=== PATIENT | male | born 1990 | race African-American/Black ===

== ENCOUNTER 2018-02-25 18:44 | Emergency (ER) | payer MEDICAID ==
[2018-02-25] MEDS ORDERED: Albuterol/Ipratropium 3.0-0.5 MG/3 ML Neb Soln NEB ONE (19:20)
--- NOTE | 2018-02-25 19:25 | EDM.PDOC ---
ED HPI GENERAL MEDICAL PROBLEM - General Chief Complaint: Respiratory Problem Stated Complaint: JOHN IS ACTING UP Time Seen by Provider: 02/25/18 19:24 Source of Information: Reports: Patient History Limitations: Reports: No Limitations - History of Present Illness INITIAL COMMENTS - FREE TEXT/NARRATIVE: HISTORY AND PHYSICAL: History of present illness: Patient is a 27-year-old male here with complaint of asthma flare. Patient states that he ran out of his rescue inhaler and nebulizer solution yesterday. He states he usually uses his medications 2-4 times per day. He states he was on a steroid inhaler but has been out of this for the past 6 months. He reports he feels his asthma is starting to flare today since he hasn't had his proair. He denies any cough, fevers, chills. Review of systems: As per history of present illness and below otherwise all systems reviewed and negative. Past medical history: As per history of present illness and as reviewed below otherwise noncontributory. Surgical history: As per history of present illness and as reviewed below otherwise noncontributory. Social history: No reported history of drug or alcohol abuse. Family history: As per history of present illness and as reviewed below otherwise noncontributory. Physical exam: General: patient sitting comfortably in no acute distress HEENT: Atraumatic, normocephalic, pupils reactive, negative for conjunctival pallor or scleral icterus, mucous membranes moist, throat clear, neck supple, nontender, trachea midline. Lungs: Lungs sounds diminished bilaterally, no rhonchi or rales, breath sounds equal bilaterally, chest nontender. Heart: S1S2, regular, negative for clicks, rubs, or JVD. Abdomen: Soft, nondistended, nontender. Negative for masses or hepatosplenomegaly. Negative for costovertebral tenderness. Pelvis: Stable nontender. Genitourinary: Deferred. Rectal: Deferred. Extremities: Atraumatic, negative for cords or calf pain. Neurovascular unremarkable. Neuro: Awake, alert, oriented. Cranial nerves II through XII unremarkable. Cerebellum unremarkable. Motor and sensory unremarkable throughout. Exam nonfocal. Notes: Patient reports improvement in breathing with DuoNeb. Diagnostics: [] Therapeutics: DuoNeb Impression: Asthma exacerbation Plan: 1. Take medrol dosepak and use rescue inhaler as needed as discussed 2. Follow up with primary care provider 3. Return to ED as needed as discussed Definitive disposition and diagnosis as appropriate pending reevaluation and review of above. - Related Data Allergies Allergy/AdvReac Type Severity Reaction Status Date / Time No Known Allergies Allergy Verified 02/11/18 12:29 Home Meds: Home Meds Albuterol [Ventolin HFA] 2 puff INH Q4HR PRN #1 inhaler 02/11/18 [Rx] predniSONE [Prednisone] 20 mg PO DAILY #5 tablet 02/11/18 [Rx] Albuterol Sulfate 2.5 mg IH Q4HR #10 each 02/25/18 [Rx] Albuterol Sulfate [Proair Hfa] 8.5 gm IH Q4HR #2 hfa.aer.ad 02/25/18 [Rx] methylPREDNISolone [Medrol] 4 mg PO ASDIRECTED #1 tab.ds.pk 02/25/18 [Rx] Past Medical History HEENT History: Reports: None Cardiovascular History: Reports: None Respiratory History: Reports: Asthma Gastrointestinal History: Reports: None Genitourinary History: Reports: None Musculoskeletal History: Reports: None Neurological History: Reports: None Endocrine/Metabolic History: Reports: None - Infectious Disease History Infectious Disease History: Reports: None Social & Family History - Family History Family Medical History: Noncontributory - Caffeine Use Caffeine Use: Reports: None ED ROS GENERAL - Review of Systems Review Of Systems: ROS reveals no pertinent complaints other than HPI. ED EXAM, GENERAL - Physical Exam Exam: See Below (see dictation) Course - Orders/Labs/Meds Orders: Active Orders 24 hr Category Date Time Status RT Aerosol Therapy [RC] ASDIRECTED Care 02/25/18 19:21 Ordered Meds: Medications Discontinued Medications Generic Name Dose Route Start Last Admin Trade Name Freq PRN Reason Stop Dose Admin Albuterol/Ipratropium 3 ml 02/25/18 19:20 02/25/18 19:32 Duoneb 3.0-0.5 Mg/3 Ml NEB 02/25/18 19:21 3 ml ONETIME ONE Administration Departure - Departure Time of Disposition: 19:53 Disposition: Home, Self-Care 01 Condition: Good Clinical Impression: Asthma exacerbation - Discharge Information Prescriptions: Albuterol Sulfate 2.5 mg IH Q4HR #10 each Albuterol Sulfate [Proair Hfa] 8.5 gm IH Q4HR #2 hfa.aer.ad methylPREDNISolone [Medrol] 4 mg PO ASDIRECTED #1 tab.ds.pk Referrals: PCP,None [Primary Care Provider] - Forms: ED Department Discharge Additional Instructions: The following information is given to patients seen in the emergency department who are being discharged to home. This information is to outline your options for follow-up care. We provide all patients seen in our emergency department with a follow-up referral. The need for follow-up, as well as the timing and circumstances, are variable depending upon the specifics of your emergency department visit. If you don't have a primary care physician on staff, we will provide you with a referral. We always advise you to contact your personal physician following an emergency department visit to inform them of the circumstance of the visit and for follow-up with them and/or the need for any referrals to a consulting specialist. The emergency department will also refer you to a specialist when appropriate. This referral assures that you have the opportunity for follow-up care with a specialist. All of these measure are taken in an effort to provide you with optimal care, which includes your follow-up. Under all circumstances we always encourage you to contact your private physician who remains a resource for coordinating your care. When calling for follow-up care, please make the office aware that this follow-up is from your recent emergency room visit. If for any reason you are refused follow-up, please contact the [facility] Emergency Department at and asked to speak to the emergency department charge nurse. [facility] Primary Care [address] [place] [id number] [id number] 1. Take medrol dosepak and use rescue inhaler as needed as discussed 2. Follow up with primary care provider 3. Return to ED as needed as discussed - My Orders Last 24 Hours: My Active Orders 02/25/18 19:21 RT Aerosol Therapy [RC] ASDIRECTED - Assessment/Plan Last 24 Hours: My Active Orders 02/25/18 19:21 RT Aerosol Therapy [RC] ASDIRECTED
== END 2018-02-25 20:07 | disposition home or self-care (01) ==
LOC: MW.ED 18:44
DX: J45.901 Unspecified asthma with (acute) exacerbation (principal)
CPT/HCPCS: 94640; 99284-25; J7620-GY

== ENCOUNTER 2018-03-26 16:43 | Emergency (ER) | payer MEDICAID ==
[2018-03-26] MEDS ORDERED: methylPREDNISolone Sodium Succinate 125 MG/2 ML SDV IVPUSH ONE (17:11)
[2018-03-26] MEDS ORDERED: Albuterol/Ipratropium 3.0-0.5 MG/3 ML Neb Soln NEB ONE (17:11)
--- NOTE | 2018-03-26 17:16 | EDM.PDOC ---
<Kelvin Hernandez E - Last Filed: 03/26/18 18:42> ED HPI GENERAL MEDICAL PROBLEM - General Chief Complaint: Respiratory Problem Stated Complaint: HAVE AND ASMIA ATTACK Time Seen by Provider: 03/26/18 16:46 - History of Present Illness INITIAL COMMENTS - FREE TEXT/NARRATIVE: Dr Young is involved in a more critical he shouldn't care at the moment. I did review the patient's chart and the patient himself. Patient states that he feels much improved after his initial breathing treatment. Vital signs are stable. I did offer a second DuoNeb which he declined. He states he would take to be discharged home with his prescriptions. This was reviewed with Dr. Young prior to the patient's discharge. He is agreeable to plan of care. Plan: 1. Please take your medications as directed. 2. Follow-up with your primary caregiver in the next 1-2 days. Return to the ED as needed and as discussed. - Related Data Allergies Allergy/AdvReac Type Severity Reaction Status Date / Time No Known Allergies Allergy Verified 03/26/18 17:26 Home Meds: Home Meds Albuterol Sulfate [Proair Hfa] 8.5 gm IH Q4HR #2 hfa.aer.ad 02/25/18 [Rx] Course - Vital Signs Last Recorded V/S: Last Vital Signs Temp 97.9 F 03/26/18 18:45 Pulse 82 03/26/18 18:45 Resp 20 03/26/18 18:45 BP 142/85 H 03/26/18 18:45 Pulse Ox 97 03/26/18 18:45 - Orders/Labs/Meds Orders: Active Orders 24 hr Category Date Time Status RT Aerosol Therapy [RC] ASDIRECTED Care 03/26/18 17:11 Active Meds: Medications Discontinued Medications Generic Name Dose Route Start Last Admin Trade Name Freq PRN Reason Stop Dose Admin Albuterol/Ipratropium 3 ml 03/26/18 17:11 03/26/18 17:35 Duoneb 3.0-0.5 Mg/3 Ml NEB 03/26/18 17:12 3 ml ONETIME ONE Administration Methylprednisolone Sodium Succinate 125 mg 03/26/18 17:11 03/26/18 18:01 Solu-Medrol IVPUSH 03/26/18 17:12 Not Given ONETIME ONE Methylprednisolone Sodium Succinate 125 mg 03/26/18 18:01 03/26/18 18:01 Solu-Medrol IM 03/26/18 18:02 125 mg ONETIME ONE Administration Departure - Departure Time of Disposition: 18:44 Disposition: Home, Self-Care 01 Clinical Impression: Shortness of breath, Wheezing on expiration Asthma exacerbation Qualifiers: Asthma severity: mild Asthma persistence: intermittent Qualified Code(s): J45.21 - Mild intermittent asthma with (acute) exacerbation - Discharge Information Instructions: Asthma, Adult, [id number] Referrals: PCP,None [Primary Care Provider] - Forms: ED Department Discharge Additional Instructions: The following information is given to patients seen in the emergency department who are being discharged to home. This information is to outline your options for follow-up care. We provide all patients seen in our emergency department with a follow-up referral. The need for follow-up, as well as the timing and circumstances, are variable depending upon the specifics of your emergency department visit. If you don't have a primary care physician on staff, we will provide you with a referral. We always advise you to contact your personal physician following an emergency department visit to inform them of the circumstance of the visit and for follow-up with them and/or the need for any referrals to a consulting specialist. The emergency department will also refer you to a specialist when appropriate. This referral assures that you have the opportunity for follow-up care with a specialist. All of these measure are taken in an effort to provide you with optimal care, which includes your follow-up. Under all circumstances we always encourage you to contact your private physician who remains a resource for coordinating your care. When calling for follow-up care, please make the office aware that this follow-up is from your recent emergency room visit. If for any reason you are refused follow-up, please contact the [facility] Emergency Department at and asked to speak to the emergency department charge nurse. [facility] [address] [place] [id number] [id number] 1. Please take your medications as directed. 2. Follow-up with your primary caregiver in the next 1-2 days. Return to the ED as needed and as discussed. - My Orders Last 24 Hours: My Active Orders 03/26/18 17:11 RT Aerosol Therapy [RC] ASDIRECTED - Assessment/Plan Last 24 Hours: My Active Orders 03/26/18 17:11 RT Aerosol Therapy [RC] ASDIRECTED <Bereket Young - Last Filed: 03/27/18 08:43> ED HPI GENERAL MEDICAL PROBLEM - General Source of Information: Reports: Patient History Limitations: Reports: No Limitations - History of Present Illness INITIAL COMMENTS - FREE TEXT/NARRATIVE: HISTORY AND PHYSICAL: History of present illness: 27-year-old male presenting to emergency department with chief complaint of shortness of breath with past medical history of asthma. Patient states that today he began to feel somewhat short of breath in the morning. This has worsened throughout the day. Secondary to his history of asthma he came to emergency department for further evaluation. States that he is out of his medications at this time. He is originally from [place] and has been in [place] for 1 month. He has not been able to set up a primary care provider. He normally takes Symbicort daily and does have a pro-air inhaler. Also reports that he has had a prednisone prescription in the past to be used as needed for flareups. He denies any associated chest pain, palpitations, syncopal events, or focal neurologic deficits. He has never been intubated secondary to his asthma. Otherwise patient is generally healthy. On exam patient has diffuse generalized wheezing heard throughout all lung parekh. Oxygen saturation is 99% on room air. Patient did have improvement after 1 DuoNeb however there was some still significant decreased air movement so patient was given an additional DuoNeb. Review of systems: As per history of present illness and below otherwise all systems reviewed and negative. Past medical history: As per history of present illness and as reviewed below otherwise noncontributory. Surgical history: As per history of present illness and as reviewed below otherwise noncontributory. Social history: No reported history of drug or alcohol abuse. Family history: As per history of present illness and as reviewed below otherwise noncontributory. Physical exam: HEENT: Atraumatic, normocephalic, pupils reactive, negative for conjunctival pallor or scleral icterus, mucous membranes moist, throat clear, neck supple, nontender, trachea midline. Lungs: Generalized wheezing heard throughout all lung parekh, breath sounds equal bilaterally, chest nontender. Heart: S1S2, regular, negative for clicks, rubs, or JVD. Abdomen: Soft, nondistended, nontender. Negative for masses or hepatosplenomegaly. Negative for costovertebral tenderness. Pelvis: Stable nontender. Genitourinary: Deferred. Rectal: Deferred. Extremities: Atraumatic, negative for cords or calf pain. Neurovascular unremarkable. Neuro: Awake, alert, oriented. Cranial nerves II through XII unremarkable. Cerebellum unremarkable. Motor and sensory unremarkable throughout. Exam nonfocal. Diagnostics: Therapeutics: DuoNeb 1, 125 mg Solu-medrol IM, Albuterol neb prescription, pro-air rescue inhaler prescription, Singulair prescription Impression: Shortness of breath Asthma exacerbation acute Plan: Patient had significant improvement with one duoneb and refused second duoneb. See above and H&P he was disc discharged in good condition with a prescription for albuterol nebs, pro-air rescue inhaler, Singulair, and information to follow -up with a primary care physician as soon as possible. Secondary to his long- standing asthma I emphasized that he establish a primary care physician here as he is originally from [place]. Patient was instructed to return the emergency department if any new or worsening symptoms. Definitive disposition and diagnosis as appropriate pending reevaluation and review of above. chest Pain Score (Numeric/FACES): 2 Past Medical History HEENT History: Reports: None Cardiovascular History: Reports: None Respiratory History: Reports: Asthma Gastrointestinal History: Reports: None Genitourinary History: Reports: None Musculoskeletal History: Reports: None Neurological History: Reports: None Endocrine/Metabolic History: Reports: None - Infectious Disease History Infectious Disease History: Reports: None Social & Family History - Family History Family Medical History: Noncontributory - Caffeine Use Caffeine Use: Reports: None ED ROS GENERAL - Review of Systems Review Of Systems: ROS reveals no pertinent complaints other than HPI. ED EXAM, GENERAL - Physical Exam Exam: See Below Course - Vital Signs Last Recorded V/S: Last Vital Signs Temp 97.9 F 03/26/18 18:45 Pulse 82 03/26/18 18:45 Resp 20 03/26/18 18:45 BP 142/85 H 03/26/18 18:45 Pulse Ox 97 03/26/18 18:45 Departure - Departure Condition: Good
[2018-03-26] MEDS ORDERED: methylPREDNISolone Sodium Succinate 125 MG/2 ML SDV IM ONE (18:01)
== END 2018-03-26 18:45 | disposition home or self-care (01) ==
LOC: MW.ED 16:43
DX: J45.21 Mild intermittent asthma with (acute) exacerbation (principal)
CPT/HCPCS: 94640; 96372; 99284; J2930; J7620-GY

== ENCOUNTER 2019-04-01 16:09 | Emergency (ER) | payer SELFPAY ==
[2019-04-01] MEDS ORDERED: Albuterol/Ipratropium 3.0-0.5 MG/3 ML Neb Soln NEB ONE (16:25)
--- NOTE | 2019-04-01 16:27 | EDM.PDOC ---
ED HPI GENERAL MEDICAL PROBLEM - General Chief Complaint: Respiratory Problem Stated Complaint: ASTHMA Time Seen by Provider: 04/01/19 16:26 Source of Information: Reports: Patient - History of Present Illness INITIAL COMMENTS - FREE TEXT/NARRATIVE: HISTORY AND PHYSICAL: History of present illness: []Patient with history of asthma presents with chest tightness as he has ran out of his hand held inhaler he does use this daily no fever nausea vomiting chills sweats no shortness of breath tripoding pursed lip breathing or accessory muscle usage No fever nausea vomiting chills sweats Review of systems: As per history of present illness and below otherwise all systems reviewed and negative. Past medical history: As per history of present illness and as reviewed below otherwise noncontributory. Surgical history: As per history of present illness and as reviewed below otherwise noncontributory. Social history: No reported history of drug or alcohol abuse. Family history: As per history of present illness and as reviewed below otherwise noncontributory. Physical exam: HEENT: Atraumatic, normocephalic, pupils reactive, negative for conjunctival pallor or scleral icterus, mucous membranes moist, throat clear, neck supple, nontender, trachea midline. Lungs: Clear to auscultation, breath sounds equal bilaterally, chest nontender. Heart: S1S2, regular, negative for clicks, rubs, or JVD. Abdomen: Soft, nondistended, nontender. Negative for masses or hepatosplenomegaly. Negative for costovertebral tenderness. Pelvis: Stable nontender. Genitourinary: Deferred. Rectal: Deferred. Extremities: Atraumatic, negative for cords or calf pain. Neurovascular unremarkable. Neuro: Awake, alert, oriented. Cranial nerves II through XII unremarkable. Cerebellum unremarkable. Motor and sensory unremarkable throughout. Exam nonfocal. Diagnostics: [ chest 1 view ] Therapeutics: [ DuoNeb-improved HFA Prednisone 20 mg #5 no refill ] Impression Asthma exacerbation Medication noncompliance Definitive disposition and diagnosis as appropriate pending reevaluation and review of above. - Related Data Allergies Allergy/AdvReac Type Severity Reaction Status Date / Time No Known Allergies Allergy Verified 04/01/19 16:23 Home Meds: Home Meds Albuterol Sulfate [Albuterol Sulfate Hfa] 2 mg INH ASDIRECTED 04/01/19 [History] Budesonide/Formoterol Fumarate [Symbicort 160-4.5 Mcg Inhaler] 2 mg INH BID [History] Past Medical History - Past Health History Medical/Surgical History: Denies Medical/Surgical History HEENT History: Reports: None Cardiovascular History: Reports: None Respiratory History: Reports: Asthma Gastrointestinal History: Reports: None Genitourinary History: Reports: None Musculoskeletal History: Reports: None Neurological History: Reports: None Endocrine/Metabolic History: Reports: None - Infectious Disease History Infectious Disease History: Reports: None Social & Family History - Family History Family Medical History: Noncontributory - Caffeine Use Caffeine Use: Reports: Energy [employer] ED ROS GENERAL - Review of Systems Review Of Systems: See Below ED EXAM, GENERAL - Physical Exam Exam: See Below Course - Vital Signs Last Recorded V/S: Last Vital Signs Temp 97.3 F 04/01/19 16:20 Pulse 86 04/01/19 16:20 Resp 20 04/01/19 16:20 BP 142/78 H 04/01/19 16:20 Pulse Ox 97 04/01/19 16:20 - Orders/Labs/Meds Orders: Active Orders 24 hr Category Date Time Status RT Aerosol Therapy [RC] ASDIRECTED Care 04/01/19 16:25 Active Chest 1V Frontal [CR] Stat Exams 04/01/19 16:26 Ordered Meds: Medications Discontinued Medications Generic Name Dose Route Start Last Admin Trade Name Freq PRN Reason Stop Dose Admin Albuterol/Ipratropium 3 ml 04/01/19 16:25 04/01/19 16:30 Duoneb 3.0-0.5 Mg/3 Ml NEB 04/01/19 16:26 3 ml ONETIME ONE Administration Departure - Departure Time of Disposition: 16:59 Disposition: Home, Self-Care 01 Condition: Good Clinical Impression: Asthma exacerbation Qualifiers: Asthma severity: mild Asthma persistence: unspecified Qualified Code(s): J45.901 - Unspecified asthma with (acute) exacerbation - Discharge Information Referrals: PCP,None [Primary Care Provider] - Forms: ED Department Discharge Additional Instructions: Medication as prescribed Return if symptoms persist or worsen Follow-up with primary care in 2 weeks [facility] - Primary Care [address] [place] [id number] The following information is given to patients seen in the emergency department who are being discharged to home. This information is to outline your options for follow-up care. We provide all patients seen in our emergency department with a follow-up referral. The need for follow-up, as well as the timing and circumstances, are variable depending upon the specifics of your emergency department visit. If you don't have a primary care physician on staff, we will provide you with a referral. We always advise you to contact your personal physician following an emergency department visit to inform them of the circumstance of the visit and for follow-up with them and/or the need for any referrals to a consulting specialist. The emergency department will also refer you to a specialist when appropriate. This referral assures that you have the opportunity for follow-up care with a specialist. All of these measure are taken in an effort to provide you with optimal care, which includes your follow-up. Under all circumstances we always encourage you to contact your private physician who remains a resource for coordinating your care. When calling for follow-up care, please make the office aware that this follow-up is from your recent emergency room visit. If for any reason you are refused follow-up, please contact the [facility] emergency department at and asked to speak to the emergency department charge nurse. - My Orders Last 24 Hours: My Active Orders 04/01/19 16:25 RT Aerosol Therapy [RC] ASDIRECTED 04/01/19 16:26 Chest 1V Frontal [CR] Stat - Assessment/Plan Last 24 Hours: My Active Orders 04/01/19 16:25 RT Aerosol Therapy [RC] ASDIRECTED 04/01/19 16:26 Chest 1V Frontal [CR] Stat
--- NOTE | 2019-04-01 17:28 | CR ---
INDICATION: Shortness of breath. Asthma. TECHNIQUE: Chest 1 views COMPARISON: 02/25/2019. FINDINGS: Cardiovascular and mediastinum: Heart size and vasculature are normal in caliber and appearance. Lungs and pleural spaces: Lungs are clear. No sign of infiltrate or mass. No sign of pleural effusion. No pneumothorax. Bones and soft tissues: No significant findings. IMPRESSION: No acute findings and no significant changes from the prior exam. Dictated by Nestor Nogueira MD @ Apr 01 2019 5:26PM Signed by Dr. Nestor Nogueira @ Apr 01 2019 5:27PM
== END 2019-04-01 17:17 | disposition home or self-care (01) ==
LOC: MW.ED 16:09
DX: J45.901 Unspecified asthma with (acute) exacerbation (principal); Z79.899 Other long term (current) drug therapy
CPT/HCPCS: 71045; 71045-26; 94640; 99283; 99285-25; J7620-GY

== ENCOUNTER 2019-04-19 15:09 | Emergency (ER) | payer SELFPAY ==
--- NOTE | 2019-04-19 15:53 | EDM.PDOC ---
ED HPI GENERAL MEDICAL PROBLEM - General Chief Complaint: Medication Administration Stated Complaint: ASTHMA ATTACK Time Seen by Provider: 04/19/19 15:41 Source of Information: Reports: Patient History Limitations: Reports: No Limitations - History of Present Illness INITIAL COMMENTS - FREE TEXT/NARRATIVE: Presents reporting that he is out of his inhalers and is afraid might have an asthma attack. He has been asymptomatic except a little chest tightness now and then. Please admits he has been irresponsible and not gotten a primary care appointment like he should be. He is afraid he may have an asthma attack and not have an inhaler available. He usually takes Symbicort 2 puffs twice a day with a rescue inhaler. - Related Data Allergies Allergy/AdvReac Type Severity Reaction Status Date / Time No Known Allergies Allergy Verified 04/01/19 16:23 Home Meds: Home Meds Albuterol Sulfate [Albuterol Sulfate Hfa] 2 mg INH ASDIRECTED 04/01/19 [History] Budesonide/Formoterol Fumarate [Symbicort 160-4.5 Mcg Inhaler] 2 mg INH BID [History] Albuterol Sulfate [Proair Hfa] 2 puff IH Q4HR PRN #1 [email or web address] 04/19/19 [Rx] Budesonide/Formoterol Fumarate [Symbicort 160-4.5 Mcg Inhaler] 2 puff IH BID #1 [email or web address] 04/19/19 [Rx] Past Medical History - Past Health History Medical/Surgical History: Denies Medical/Surgical History HEENT History: Reports: None Cardiovascular History: Reports: None Respiratory History: Reports: Asthma Gastrointestinal History: Reports: None Genitourinary History: Reports: None Musculoskeletal History: Reports: None Neurological History: Reports: None Endocrine/Metabolic History: Reports: None - Infectious Disease History Infectious Disease History: Reports: None Social & Family History - Family History Family Medical History: Noncontributory - Tobacco Use Smoking Status *Q: Never Smoker Second Hand Smoke Exposure: No - Caffeine Use Caffeine Use: Reports: None - Recreational Drug Use Recreational Drug Use: No ED ROS GENERAL - Review of Systems Review Of Systems: ROS reveals no pertinent complaints other than HPI. ED EXAM, GENERAL - Physical Exam Exam: See Below Exam Limited By: No Limitations General Appearance: Alert, No Apparent Distress Ears: Normal External Exam Nose: Normal Inspection Throat/Mouth: Normal Inspection Head: Atraumatic, Normocephalic Neck: Normal Inspection Respiratory/Chest: No Respiratory Distress, Lungs Clear, Normal Breath Sounds Cardiovascular: Normal Peripheral Pulses, Regular Rate, Rhythm, No Murmur GI/Abdominal: Normal Bowel Sounds Extremities: Normal Inspection Neurological: Alert, Oriented Psychiatric: Normal Affect, Normal Mood Skin Exam: Warm, Dry, Intact, Normal Color, No Rash Course - Vital Signs Last Recorded V/S: Last Vital Signs Temp 35.7 C 04/19/19 15:19 Pulse 96 04/19/19 15:19 Resp 20 04/19/19 15:19 BP 146/90 H 04/19/19 15: Pulse Ox 95 04/19/19 15:19 Departure - Departure Time of Disposition: 15:52 Disposition: Home, Self-Care 01 Condition: Good Clinical Impression: Medication refill - Discharge Information Prescriptions: Albuterol Sulfate [Proair Hfa] 2 puff IH Q4HR PRN #1 [email or web address] PRN Reason: Wheezing Budesonide/Formoterol Fumarate [Symbicort 160-4.5 Mcg Inhaler] 2 puff IH BID #1 [email or web address] Referrals: PCP,Unknown [Primary Care Provider] - Additional Instructions: The following information is given to patients seen in the emergency department who are being discharged to home. This information is to outline your options for follow-up care. We provide all patients seen in our emergency department with a follow-up referral. The need for follow-up, as well as the timing and circumstances, are variable depending upon the specifics of your emergency department visit. If you don't have a primary care physician on staff, we will provide you with a referral. We always advise you to contact your personal physician following an emergency department visit to inform them of the circumstance of the visit and for follow-up with them and/or the need for any referrals to a consulting specialist. The emergency department will also refer you to a specialist when appropriate. This referral assures that you have the opportunity for follow-up care with a specialist. All of these measure are taken in an effort to provide you with optimal care, which includes your follow-up. Under all circumstances we always encourage you to contact your private physician who remains a resource for coordinating your care. When calling for follow-up care, please make the office aware that this follow-up is from your recent emergency room visit. If for any reason you are refused follow-up, please contact the [facility] Emergency Department at and asked to speak to the emergency department charge nurse. [facility] - Primary Care [address] [place] [id number] [address] 1. Refill medications 2. Appointment in primary care immediately
== END 2019-04-19 16:02 | disposition home or self-care (01) ==
LOC: MW.ED 15:09
DX: Z76.0 Encounter for issue of repeat prescription (principal); J45.909 Unspecified asthma, uncomplicated; Z79.899 Other long term (current) drug therapy
CPT/HCPCS: 99281; 99283

== ENCOUNTER 2019-05-03 10:46 | Emergency (ER) | payer MEDICAID ==
[2019-05-03] MEDS ORDERED: Albuterol/Ipratropium 3.0-0.5 MG/3 ML Neb Soln NEB ONE (10:56)
[2019-05-03] MEDS ORDERED: methylPREDNISolone Sodium Succinate 125 MG/2 ML SDV IM ONE (10:56)
--- NOTE | 2019-05-03 11:05 | EDM.PDOC ---
ED HPI GENERAL MEDICAL PROBLEM - General Chief Complaint: Respiratory Problem Stated Complaint: ASTHMA Time Seen by Provider: 05/03/19 10:47 Source of Information: Reports: Patient History Limitations: Reports: No Limitations - History of Present Illness INITIAL COMMENTS - FREE TEXT/NARRATIVE: HISTORY AND PHYSICAL: History of present illness: Patient is a 28-year-old male who presents to the emergency room with complaints of dyspnea. Patient has a history of asthma and typically uses an albuterol inhaler when he does feel short of breath. States he does uses routinely. Noticed that his O Peter all inhaler had ran out and was "going to try stick it out" as he has an appointment on Thursday, but felt increase in symptoms and came to the emergency room. Patient denies any fever, chills, headache, change in vision, syncope or near syncope. Denies any chest pain, back pain or cough. Denies any abdominal pain, nausea, vomiting, diarrhea, constipation or dysuria. Has not noted any blood in urine or stool. Patient has been eating and drinking appropriately. Review of systems: As per history of present illness and below otherwise all systems reviewed and negative. Past medical history: As per history of present illness and as reviewed below otherwise noncontributory. Surgical history: As per history of present illness and as reviewed below otherwise noncontributory. Social history: See social history for further information Family history: As per history of present illness and as reviewed below otherwise noncontributory. Physical exam: General: Well-developed and well-nourished 28-year-old male. Alert and oriented. Nontoxic appearing and in no acute distress. HEENT: Atraumatic, normocephalic, pupils equal and reactive bilaterally, negative for conjunctival pallor or scleral icterus, mucous membranes moist, trachea midline. No drooling or trismus noted. No meningeal signs. No hot potato voice noted. Lungs: Diminished to bilateral posterior bases otherwise clear, breath sounds equal bilaterally, chest nontender. Heart: S1S2, regular rate and rhythm without overt murmur Abdomen: Soft, nondistended, obese, nontender. Skin: Intact, warm, dry. No lesions or rashes noted. Extremities: Atraumatic, moves all extremities per self without difficulty or deficits, negative for cords or calf pain. Neurovascular unremarkable. Neuro: Awake, alert, oriented. Cranial nerves II through XII unremarkable. Cerebellum unremarkable. Motor and sensory unremarkable throughout. Exam nonfocal. Notes: Patient reports that he does have an appointment on Thursday to get his medications refilled. I did offer to refill his medication at this time but he states he would not be able to afford it as he does not get paid until next week. We'll dispense 1 albuterol inhaler while here. He does feel improvement after the medicationsSupportive care measures were reviewed and discussed. Voices understanding and is agreeable to plan of care. Denies any further questions or concerns at this time. Diagnostics: None Therapeutics: Duo Neb, Solu-Medrol, Pro-Air Prescription: Declines Impression: Asthma Exacerbation Plan: 1. Please use Tylenol and/or Ibuprofen as needed for pain and fever management. 2. Use Albuterol as needed and as directed. 3. Please follow up with your primary care provider. Return to the ED as needed as discussed. Definitive disposition and diagnosis as appropriate pending reevaluation and review of above. lungs Pain Score (Numeric/FACES): 1 - Related Data Allergies Allergy/AdvReac Type Severity Reaction Status Date / Time No Known Allergies Allergy Verified 05/03/19 10:59 Home Meds: Home Meds Albuterol Sulfate [Albuterol Sulfate Hfa] 2 mg INH ASDIRECTED 04/01/19 [History] Budesonide/Formoterol Fumarate [Symbicort 160-4.5 Mcg Inhaler] 2 mg INH BID [History] Albuterol Sulfate [Proair Hfa] 2 puff IH Q4HR PRN #1 [email or web address] 04/19/19 [Rx] Budesonide/Formoterol Fumarate [Symbicort 160-4.5 Mcg Inhaler] 2 puff IH BID #1 [email or web address] 04/19/19 [Rx] Past Medical History - Past Health History Medical/Surgical History: Denies Medical/Surgical History HEENT History: Reports: None Cardiovascular History: Reports: None Respiratory History: Reports: Asthma Gastrointestinal History: Reports: None Genitourinary History: Reports: None Musculoskeletal History: Reports: None Neurological History: Reports: None Endocrine/Metabolic History: Reports: None - Infectious Disease History Infectious Disease History: Reports: None Social & Family History - Family History Family Medical History: Noncontributory - Caffeine Use Caffeine Use: Reports: None ED ROS GENERAL - Review of Systems Review Of Systems: ROS reveals no pertinent complaints other than HPI. ED EXAM, GENERAL - Physical Exam Exam: See Below (See dictation) Course - Vital Signs Last Recorded V/S: Last Vital Signs Temp 96.0 F 05/03/19 10:54 Pulse 97 05/03/19 10:54 Resp 21 H 05/03/19 10:54 BP 152/99 H 05/03/19 10:54 Pulse Ox 96 05/03/19 10:54 - Orders/Labs/Meds Orders: Active Orders 24 hr Category Date Time Status RT Aerosol Therapy [RC] ASDIRECTED Care 05/03/19 10:57 Ordered RT Post Treatment Assessment [RC] Click to Edit Care 05/03/19 11:11 Ordered RT Pre-Treatment Assessment [RC] Click to Edit Care 05/03/19 11:11 Ordered Meds: Medications Discontinued Medications Generic Name Dose Route Start Last Admin Trade Name Freq PRN Reason Stop Dose Admin Albuterol 1 gm 05/03/19 11:11 Ventolin Hfa INH 05/03/19 11:12 ONETIME ONE Albuterol/Ipratropium 3 ml 05/03/19 10:56 05/03/19 11:01 Duoneb 3.0-0.5 Mg/3 Ml NEB 05/03/19 10:57 3 ml ONETIME ONE Administration Methylprednisolone Sodium Succinate 125 mg 05/03/19 10:56 05/03/19 11:02 Solu-Medrol IM 05/03/19 10:57 125 mg ONETIME ONE Administration Departure - Departure Time of Disposition: 11:14 Disposition: Home, Self-Care 01 Clinical Impression: Asthma exacerbation Qualifiers: Asthma severity: moderate Asthma persistence: persistent Qualified Code(s): J45.41 - Moderate persistent asthma with (acute) exacerbation - Discharge Information Instructions: Asthma, Adult, [id number] Forms: ED Department Discharge Additional Instructions: The following information is given to patients seen in the emergency department who are being discharged to home. This information is to outline your options for follow-up care. We provide all patients seen in our emergency department with a follow-up referral. The need for follow-up, as well as the timing and circumstances, are variable depending upon the specifics of your emergency department visit. If you don't have a primary care physician on staff, we will provide you with a referral. We always advise you to contact your personal physician following an emergency department visit to inform them of the circumstance of the visit and for follow-up with them and/or the need for any referrals to a consulting specialist. The emergency department will also refer you to a specialist when appropriate. This referral assures that you have the opportunity for follow-up care with a specialist. All of these measure are taken in an effort to provide you with optimal care, which includes your follow-up. Under all circumstances we always encourage you to contact your private physician who remains a resource for coordinating your care. When calling for follow-up care, please make the office aware that this follow-up is from your recent emergency room visit. If for any reason you are refused follow-up, please contact the [facility] Emergency Department at and asked to speak to the emergency department charge nurse. [facility] Primary Care [address] [place] [id number] [facility] [address] [place] [id number] 1. Please use Tylenol and/or Ibuprofen as needed for pain and fever management. 2. Use Albuterol as needed and as directed. 3. Please follow up with your primary care provider. Return to the ED as needed as discussed. - My Orders Last 24 Hours: My Active Orders 05/03/19 10:57 RT Aerosol Therapy [RC] ASDIRECTED 05/03/19 11:11 RT Post Treatment Assessment [RC] Click to Edit RT Pre-Treatment Assessment [RC] Click to Edit - Assessment/Plan Last 24 Hours: My Active Orders 05/03/19 10:57 RT Aerosol Therapy [RC] ASDIRECTED 05/03/19 11:11 RT Post Treatment Assessment [RC] Click to Edit RT Pre-Treatment Assessment [RC] Click to Edit
[2019-05-03] MEDS ORDERED: Albuterol 8 GM Inhaler INH ONE (11:11)
== END 2019-05-03 11:26 | disposition home or self-care (01) ==
LOC: MW.ED 10:46
DX: J45.41 Moderate persistent asthma with (acute) exacerbation (principal); Z79.51 Long term (current) use of inhaled steroids
CPT/HCPCS: 96372; 99284; A9270; J2930; 99282; J7620-GY

== ENCOUNTER 2020-02-27 11:11 | Emergency (ER) | payer SELFPAY ==
--- NOTE | 2020-02-27 11:17 | EDM.PDOC ---
ED HPI GENERAL MEDICAL PROBLEM - General Chief Complaint: Respiratory Problem Stated Complaint: ASTHMA Time Seen by Provider: 02/27/20 11:14 Source of Information: Reports: Patient History Limitations: Reports: No Limitations - History of Present Illness INITIAL COMMENTS - FREE TEXT/NARRATIVE: HISTORY AND PHYSICAL: History of present illness: Patient is a 29-year-old male who presents to the ED today with concern of desire for refill of asthma inhalers and medication. Patient states that he is having an issue with money at this time and is having a hard time getting his in halers refilled. Patient states he ran out of his albuterol inhaler yesterday and ran out of his Symbicort inhaler 5 days ago. Patient states he has an appointment with his PCP this next week for refill but worries about not having his inhalers at home. Patient states his chest does randomly feel tight from his asthma which is typical for him but denies any symptoms at this time. Patient denies fever, chills, chest pain, shortness of breath, or cough. Denies headache, neck stiff ness, change in vision, syncope, or near syncope. Denies nausea, vomiting, abdominal pain, diarrhea, constipation, or dysuria. Has not noted any blood in urine or stool. Patient has been eating and drinking appropriately. Review of systems: As per history of present illness and below otherwise all systems reviewed and negative. Past medical history: As per history of present illness and as reviewed below otherwise noncontributory. Surgical history: As per history of present illness and as reviewed below otherwise noncontributory. Social history: See social history for further information Family history: As per history of present illness and as reviewed below otherwise noncontributory. Physical exam: General: Patient is alert, oriented, and in no acute distress. Patient sitting comfortably on exam table. HEENT: Atraumatic, normocephalic, pupils equal and reactive bilaterally, negative for conjunctival pallor or scleral icterus, mucous membranes moist, TMs normal bilaterally, throat clear, neck supple, nontender, trachea midline. No drooling or trismus noted. No meningeal signs. No hot potato voice noted. Lungs: Clear to auscultation, breath sounds equal bilaterally, chest nontender. Heart: S1S2, regular rate and rhythm without overt murmur Abdomen: Soft, nondistended, nontender. Negative for masses or hepatosplenomegaly. Negative for costovertebral tenderness. Pelvis: Stable nontender. Genitourinary: Deferred. Rectal: Deferred. Skin: Intact, warm, dry. No lesions or rashes noted. Extremities: Atraumatic, negative for cords or calf pain. Neurovascular unremarkable. Neuro: Awake, alert, oriented. Cranial nerves II through XII unremarkable. Cerebellum unremarkable. Motor and sensory unremarkable throughout. Exam nonfocal. Notes: Nursing staff did assist patient on applying for [place] Medicaid to help with payments and appointment with PCP was made for close follow up. Discussed importance for follow-up with a primary care provider. Voices understanding and is agreeable to plan of care. Denies any further questions or concerns at this time. Diagnostics: None Therapeutics: Albuterol, Decadron Prescription: Symbicort, Proair Impression: Asthma Plan: 1. Use the inhalers prescribed to you as directed and as discussed. 2. Follow-up with your primary care provider as discussed. Return to the ED as needed and as discussed. Definitive disposition and diagnosis as appropriate pending reevaluation and review of above. chest Pain Score (Numeric/FACES): 4 - Related Data Allergies Allergy/AdvReac Type Severity Reaction Status Date / Time No Known Allergies Allergy Verified 02/27/20 11:17 Home Meds: Home Meds Albuterol Sulfate [Proair Hfa] 2 puff IH Q4HR PRN #1 [email or web address] 04/19/19 [Rx] Albuterol Sulfate [Proair Hfa] 8.5 gm IH Q8HR PRN #1 [email or web address] 02/27/20 [Rx] Budesonide/Formoterol Fumarate [Symbicort 160-4.5 Mcg Inhaler] 2 puff IH Q4HR 02/27/20 [History] Budesonide/Formoterol [Symbicort 160-4.5 MCG] 2 puff INH DAILY #1 inhaler 02/27/20 [Rx] Past Medical History - Past Health History Medical/Surgical History: Denies Medical/Surgical History HEENT History: Reports: None Cardiovascular History: Reports: None Respiratory History: Reports: Asthma Gastrointestinal History: Reports: None Genitourinary History: Reports: None Musculoskeletal History: Reports: None Neurological History: Reports: None Endocrine/Metabolic History: Reports: None - Infectious Disease History Infectious Disease History: Reports: None Social & Family History - Family History Family Medical History: Noncontributory - Caffeine Use Caffeine Use: Reports: None ED ROS GENERAL - Review of Systems Review Of Systems: Comprehensive ROS is negative, except as noted in HPI. ED EXAM, GENERAL - Physical Exam Exam: See Below (see dictation) Course - Vital Signs Last Recorded V/S: Last Vital Signs Temp 98.7 F 02/27/20 11:15 Pulse 84 02/27/20 11:15 Resp 18 02/27/20 11:15 BP 178/97 H 02/27/20 11:15 Pulse Ox 95 02/27/20 11:15 - Orders/Labs/Meds Orders: Active Orders 24 hr Category Date Time Status RT Post Treatment Assessment [RC] Click to Edit Care 02/27/20 11:34 Active RT Pre-Treatment Assessment [RC] Click to Edit Care 02/27/20 11:34 Active Meds: Medications Discontinued Medications Generic Name Dose Route Start Last Admin Trade Name Freq PRN Reason Stop Dose Admin Albuterol 2.5 mg 02/27/20 11:29 02/27/20 11:39 Proventil Neb Soln NEB 02/27/20 11:30 Not Given ONETIME ONE Albuterol 8.5 gm 02/27/20 11:33 02/27/20 11:50 Ventolin Hfa INH 02/27/20 11:34 2 puff ONETIME ONE Administration Dexamethasone 10 mg 02/27/20 11:29 02/27/20 11:49 Dexamethasone PO 02/27/20 11:30 10 mg ONETIME ONE Administration Departure - Departure Time of Disposition: 11:39 Disposition: Home, Self-Care 01 Clinical Impression: Asthma Qualifiers: Asthma severity: unspecified severity Asthma persistence: unspecified Asthma complication type: unspecified Qualified Code(s): J45.909 - Unspecified asthma, uncomplicated - Discharge Information Prescriptions: Albuterol Sulfate [Proair Hfa] 8.5 gm IH Q8HR PRN #1 [email or web address] PRN Reason: Cough Budesonide/Formoterol [Symbicort 160-4.5 MCG] 2 puff INH DAILY #1 inhaler Instructions: Asthma, Adult, [id number] Forms: ED Department Discharge Additional Instructions: The following information is given to patients seen in the emergency department who are being discharged to home. This information is to outline your options for follow-up care. We provide all patients seen in our emergency department with a follow-up referral. The need for follow-up, as well as the timing and circumstances, are variable depending upon the specifics of your emergency department visit. If you don't have a primary care physician on staff, we will provide you with a referral. We always advise you to contact your personal physician following an emergency department visit to inform them of the circumstance of the visit and for follow-up with them and/or the need for any referrals to a consulting specialist. The emergency department will also refer you to a specialist when appropriate. This referral assures that you have the opportunity for follow-up care with a specialist. All of these measure are taken in an effort to provide you with optimal care, which includes your follow-up. Under all circumstances we always encourage you to contact your private physician who remains a resource for coordinating your care. When calling for follow-up care, please make the office aware that this follow-up is from your recent emergency room visit. If for any reason you are refused follow-up, please contact the [facility] Emergency Department at and asked to speak to the emergency department charge nurse. [facility] Primary Care [address] [place] [id number] [id number] 1. Use the inhalers prescribed to you as directed and as discussed. 2. Follow-up with your primary care provider as discussed. Return to the ED as needed and as discussed. Sepsis Event Note (ED) - Evaluation Sepsis Screening Result: No Definite Risk - Focused Exam Vital Signs: Vital Signs Temp Pulse Resp BP Pulse Ox 02/27/20 11:15 98.7 F 84 18 178/97 H 95 - My Orders Last 24 Hours: My Active Orders 02/27/20 11:34 RT Post Treatment Assessment [RC] Click to Edit RT Pre-Treatment Assessment [RC] Click to Edit - Assessment/Plan Last 24 Hours: My Active Orders 02/27/20 11:34 RT Post Treatment Assessment [RC] Click to Edit RT Pre-Treatment Assessment [RC] Click to Edit
[2020-02-27] MEDS ORDERED: Albuterol 0.083% 2.5 MG/3 ML Neb Soln NEB ONE (11:29)
[2020-02-27] MEDS ORDERED: Dexamethasone 10 MG/ML SDV PO ONE (11:29)
[2020-02-27] MEDS ORDERED: Albuterol 8 GM Inhaler INH ONE (11:33)
== END 2020-02-27 12:14 | disposition home or self-care (01) ==
LOC: MW.ED 11:11
DX: J45.909 Unspecified asthma, uncomplicated (principal); Z79.899 Other long term (current) drug therapy
CPT/HCPCS: 99285; A9270; J1100; 99283

== ENCOUNTER 2020-03-19 16:06 | Emergency (ER) | payer SELFPAY ==
[2020-03-19] MEDS ORDERED: Albuterol 8 GM Inhaler INH ONE (16:32)
[2020-03-19] MEDS ORDERED: Dexamethasone 10 MG/ML SDV PO ONE (16:35)
--- NOTE | 2020-03-19 16:39 | EDM.PDOC ---
ED HPI GENERAL MEDICAL PROBLEM - General Chief Complaint: Respiratory Problem Stated Complaint: ASTHMA ATTACK Time Seen by Provider: 03/19/20 16:14 Source of Information: Reports: Patient History Limitations: Reports: No Limitations - History of Present Illness INITIAL COMMENTS - FREE TEXT/NARRATIVE: HISTORY AND PHYSICAL: History of present illness: Patient is a 29-year-old male who presents to the ED today via EMS for concern of inhaler refill. I have seen patient for similar complaint recently on 02/27/2020 and at that time had given patient a refill of albuterol and Symbicort inhalers. I did call the pharmacy at that time who states that patient had multiple refills of his inhaler medication that he has not come to refill. Patient states he presents today for desire to get an albuterol inhaler through the emergency room. Patient states he has been more short of breath recently and has not went to the pharmacy to get his medications refilled. Patient states that last time he was in the ED, he felt better after the therapeutics in the emergency room. Patient states that he is homeless and cannot afford his medications as he does not have insurance and saves up his money for "other things ". Patient states he has not tried to apply for Medicaid. Patient denies fever, chills, chest pain, or cough. Denies headache, neck stiff ness, change in vision, syncope, or near syncope. Denies nausea, vomiting, abdominal pain, diarrhea, constipation, or dysuria. Has not noted any blood in urine or stool. Patient has been eating and drinking appropriately. Review of systems: As per history of present illness and below otherwise all systems reviewed and negative. Past medical history: As per history of present illness and as reviewed below otherwise nonco ntributory. Surgical history: As per history of present illness and as reviewed below otherwise noncontributory. Social history: See social history for further information Family history: As per history of present illness and as reviewed below otherwise noncontributory. Physical exam: General: Patient is alert, oriented, and in no acute distress. Patient sitting comfortably on exam table. HEENT: Atraumatic, normocephalic, pupils equal and reactive bilaterally, negative for conjunctival pallor or scleral icterus, mucous membranes moist, throat clear, neck supple, nontender, trachea midline. No drooling or trismus noted. No meningeal signs. No hot potato voice noted. Lungs: Patient speaking clearly without breathlessness, no wheezing or stridor, no accessory muscle use or respiratory distress. 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 Heart: Auscultation deferred due to current COV-ID 19 outbreak. Abdomen: Soft, nondistended, nontender. Negative for masses or hepat osplenomegaly. Negative for costovertebral tenderness. Pelvis: Stable nontender. Genitourinary: Deferred. Rectal: Deferred. Skin: Intact, warm, dry. No lesions or rashes noted. Extremities: Atraumatic, negative for cords or calf pain. Neurovascular unremarkable. Neuro: Awake, alert, oriented. Cranial nerves II through XII unremarkable. Cerebellum unremarkable. Motor and sensory unremarkable throughout. Exam nonfocal. Notes: I did call patients pharmacy and verify that he does indeed have numerous prescriptions for his inhalers available at the pharmacy for refill Patient states that he does have albuterol as well as his Symbicort prescription available at the pharmacy but is unable to pick this up due to financial reasons. Patient states that he has not "felt like "applying to [place] Medicaid in order to get assistance with his inhalers and does not have health insurance so does not pickling solution maker these inhalers at the pharmacy due to cost. Encouraged patient to apply for [place] Medicaid to receive assistance with his medications. Patient provided with contact information to apply for [place] Medicaid. Discussed with patient the importance for follow-up with her primary care provider. Voices understanding and is agreeable to plan of care. Denies any further questions or concerns at this time. Diagnostics: None Therapeutics: Proair inhaler (patient discharged with inhaler from ED), Decadron Prescription: None (Patient has albuterol and Symbicort RX available for fill at pharmacy) Impression: Asthma exacerbation, mild Medication non compliance Plan: 1. Take inhaler as prescribed given to you today. Follow up with a primary care provider as discussed. Return to the ED as needed and as discussed. 2. Fill your prescriptions for at home inhalers as discussed. 3. You can apply for [place] Medicaid as discussed to assist with medication costs. . Definitive disposition and diagnosis as appropriate pending reevaluation and review of above. chest Pain Score (Numeric/FACES): 1 - Related Data Allergies Allergy/AdvReac Type Severity Reaction Status Date / Time No Known Allergies Allergy Verified 03/19/20 16:11 Home Meds: Home Meds Budesonide/Formoterol Fumarate [Symbicort 160-4.5 Mcg Inhaler] 2 puff IH BID 02/27/20 [History] Albuterol Sulfate [Proair Hfa] 2 puff IN Q4H PRN 03/19/20 [History] Past Medical History - Past Health History Medical/Surgical History: Denies Medical/Surgical History HEENT History: Reports: None Cardiovascular History: Reports: None Respiratory History: Reports: Asthma Gastrointestinal History: Reports: None Genitourinary History: Reports: None Musculoskeletal History: Reports: None Neurological History: Reports: None Psychiatric History: Reports: None Endocrine/Metabolic History: Reports: None Hematologic History: Reports: None Immunologic History: Reports: None Oncologic (Cancer) History: Reports: None Dermatologic History: Reports: None - Infectious Disease History Infectious Disease History: Reports: None - Past Surgical History Head Surgeries/Procedures: Reports: None Oncologic Surgical History: Reports: None Dermatological Surgical History: Reports: None Social & Family History - Family History Family Medical History: Noncontributory - Tobacco Use Smoking Status *Q: Never Smoker - Caffeine Use Caffeine Use: Reports: None - Recreational Drug Use Recreational Drug Use: No ED ROS GENERAL - Review of Systems Review Of Systems: Comprehensive ROS is negative, except as noted in HPI. ED EXAM, GENERAL - Physical Exam Exam: See Below (see dictation) Course - Vital Signs Last Recorded V/S: Last Vital Signs Temp 97.3 F 03/19/20 16:08 Pulse 83 03/19/20 16:08 Resp 20 03/19/20 16:08 BP 138/87 03/19/20 16:08 Pulse Ox 94 L 03/19/20 16:08 - Orders/Labs/Meds Meds: Medications Discontinued Medications Generic Name Dose Route Start Last Admin Trade Name Freq PRN Reason Stop Dose Admin Albuterol 1 gm 03/19/20 17:30 03/19/20 17:29 Ventolin Hfa INH 03/19/20 17:31 1 canister ONETIME ONE Administration Dexamethasone 6 mg 03/19/20 16:35 03/19/20 17:27 Dexamethasone PO 03/19/20 16:36 6 mg ONETIME ONE Administration Departure - Departure Time of Disposition: 16:35 Disposition: Home, Self-Care 01 Clinical Impression: Noncompliance with medication regimen Asthma exacerbation Qualifiers: Asthma severity: mild Asthma persistence: unspecified Qualified Code(s): J45.901 - Unspecified asthma with (acute) exacerbation - Discharge Information Instructions: Asthma, Adult, [id number] Forms: ED Department Discharge Additional Instructions: The following information is given to patients seen in the emergency department who are being discharged to home. This information is to outline your options for follow-up care. We provide all patients seen in our emergency department with a follow-up referral. The need for follow-up, as well as the timing and circumstances, are variable depending upon the specifics of your emergency department visit. If you don't have a primary care physician on staff, we will provide you with a referral. We always advise you to contact your personal physician following an emergency department visit to inform them of the circumstance of the visit and for follow-up with them and/or the need for any referrals to a consulting specialist. The emergency department will also refer you to a specialist when appropriate. This referral assures that you have the opportunity for follow-up care with a specialist. All of these measure are taken in an effort to provide you with optimal care, which includes your follow-up. Under all circumstances we always encourage you to contact your private physician who remains a resource for coordinating your care. When calling for follow-up care, please make the office aware that this follow-up is from your recent emergency room visit. If for any reason you are refused follow-up, please contact the [facility] Emergency Department at and asked to speak to the emergency department charge nurse. [facility] [address] [place] [address] [id number] [address] [address] 1. Take inhaler as prescribed given to you today. Follow up with a primary care provider as discussed. Return to the ED as needed and as discussed. 2. Fill your prescriptions for at home inhalers as discussed. 3. You can apply for [place] Medicaid as discussed to assist with medication costs. [phone]. Sepsis Event Note (ED) - Evaluation Sepsis Screening Result: No Definite Risk - Focused Exam Vital Signs: Vital Signs Temp Pulse Resp BP Pulse Ox 03/19/20 16:08 97.3 F 83 20 138/87 94 L
[2020-03-19] MEDS ORDERED: Albuterol HFA 18 Gm Inhaler INH ONE (17:30)
== END 2020-03-19 17:32 | disposition home or self-care (01) ==
LOC: MW.ED 16:06
DX: J45.901 Unspecified asthma with (acute) exacerbation (principal); Z91.14 Patient's other noncompliance with medication regimen
CPT/HCPCS: 99284; J1100; J3535-GY

== ENCOUNTER 2020-04-11 09:33 | Emergency (ER) | payer SELFPAY ==
[2020-04-11] MEDS ORDERED: Albuterol/Ipratropium 3.0-0.5 MG/3 ML Neb Soln NEB ONE (09:39)
[2020-04-11] MEDS ORDERED: Sodium Chloride 0.9% 10 ML Syringe FLUSH PRN (09:39)
[2020-04-11] MEDS ORDERED: Sodium Chloride 0.9% 2.5 ML Syringe FLUSH PRN (09:39)
[2020-04-11] MEDS ORDERED: Dexamethasone 10 MG/ML SDV IVPUSH ONE (09:39)
--- NOTE | 2020-04-11 09:43 | EDM.PDOC ---
ED HPI GENERAL MEDICAL PROBLEM - General Chief Complaint: Respiratory Problem Stated Complaint: SHORTNESS OF BREATH Time Seen by Provider: 04/11/20 09:39 - History of Present Illness INITIAL COMMENTS - FREE TEXT/NARRATIVE: History of present illness: [] Patient presents with increased shortness of breath from an asthma exacerbation. Patient states he has trouble getting his medicine and had run out of his albuterol and he started to have an asthma flare last night he denies any fever chills or cough he is having chest tightness but he states this is the tightness he gets from his asthma he denies any leg swelling or leg pain no that he is in moderate respiratory distress with some diaphoresis. He usually only takes an albuterol puffer for his asthma he usually cannot afford his Symbicort he has had a nebulizer in the past but is currently broken and he has no medicine for it. Review of systems: As per history of present illness and below otherwise all systems reviewed and negative. Past medical history: As per history of present illness and as reviewed below otherwise noncontributory. Surgical history: As per history of present illness and as reviewed below otherwise noncontributory. Social history: No reported history of drug or alcohol abuse. Family history: As per history of present illness and as reviewed below otherwise noncontributory. Physical exam: HEENT: Atraumatic, normocephalic, pupils reactive, negative for conjunctival pallor or scleral icterus, mucous membranes moist, throat clear, neck supple, nontender, trachea midline. Lungs: Diminished,difuse wheezing, breath sounds equal bilaterally, chest nontender. Heart: S1S2, regular, negative for clicks, rubs, or JVD. Abdomen: Soft, nondistended, nontender. Negative for masses or hepatosplenomegaly. Negative for costovertebral tenderness. Pelvis: Stable nontender. Genitourinary: Deferred. Rectal: Deferred. Extremities: Atraumatic, negative for cords or calf pain. Neurovascular unremarkable. Neuro: Awake, alert, oriented. Cranial nerves II through XII unremarkable. Cerebellum unremarkable. Motor and sensory unremarkable throughout. Exam nonfocal. Skin: Diaphoretic Diagnostics: [] Therapeutics: [] Impression: Asthma exacerbation [] Plan: Patient will have an EKG performed she will have albuterol DuoNeb and dexamethasone and be reassessed. [] Definitive disposition and diagnosis as appropriate pending reevaluation and review of above. chest Pain Score (Numeric/FACES): 3 - Related Data Allergies Allergy/AdvReac Type Severity Reaction Status Date / Time No Known Allergies Allergy Verified 04/11/20 09:39 Home Meds: Home Meds Budesonide/Formoterol Fumarate [Symbicort 160-4.5 Mcg Inhaler] 2 puff IH BID 02/27/20 [History] Albuterol Sulfate [Proair Hfa] 2 puff IN Q4H PRN 03/19/20 [History] Albuterol Sulfate [Albuterol Sulfate Hfa] 8.5 gm IH Q4HR #1 [id number] 04/11/20 [Rx] Albuterol [Proventil] 2.5 mg .XX QID #1 box 04/11/20 [Rx] Past Medical History - Past Health History Medical/Surgical History: Denies Medical/Surgical History HEENT History: Reports: None Cardiovascular History: Reports: None Respiratory History: Reports: Asthma Gastrointestinal History: Reports: None Genitourinary History: Reports: None Musculoskeletal History: Reports: None Neurological History: Reports: None Psychiatric History: Reports: None Endocrine/Metabolic History: Reports: None Hematologic History: Reports: None Immunologic History: Reports: None Oncologic (Cancer) History: Reports: None Dermatologic History: Reports: None - Infectious Disease History Infectious Disease History: Reports: None - Past Surgical History Head Surgeries/Procedures: Reports: None Oncologic Surgical History: Reports: None Dermatological Surgical History: Reports: None Social & Family History - Family History Family Medical History: Noncontributory - Caffeine Use Caffeine Use: Reports: None ED ROS GENERAL - Review of Systems Review Of Systems: See Below ED EXAM, GENERAL - Physical Exam Exam: See Below EKG INTERPRETATION EKG Interpretation Comments: EKG normal sinus rhythm rate of [address]-T changes no fantasma ischemia normal axis normal intervals read and interpreted by me Course - Vital Signs Text/Narrative:: Patient is doing better after his DuoNeb and Decadron. He is no longer in respiratory distress maintaining sats 95% he will be discharged home I will dispense a an albuterol inhaler, write a prescription for an inhaler write a prescription for nebulizer write a prescription for nebulizer albuterol for the patient. He is to follow-up with his primary care doctor. Return to ED if worsening Last Recorded V/S: Last Vital Signs Temp 35.9 C L 04/11/20 09:35 Pulse 96 04/11/20 09:35 Resp 22 H 04/11/20 09:35 BP 152/102 H 04/11/20 09:35 Pulse Ox 94 L 04/11/20 09:35 - Orders/Labs/Meds Orders: Active Orders 24 hr Category Date Time Status EKG Documentation Completion [RC] STAT Care 04/11/20 09:39 Active RT Post Treatment Assessment [RC] Click to Edit Care 04/11/20 10:29 Ordered RT Pre-Treatment Assessment [RC] Click to Edit Care 04/11/20 10:29 Ordered Albuterol [Ventolin HFA] Med 04/11/20 10:29 Once 2 gm INH ONETIME ONE Sodium Chloride 0.9% [Saline Flush] Med 04/11/20 09:39 Active 10 ml FLUSH ASDIRECTED PRN Sodium Chloride 0.9% [Saline Flush] Med 04/11/20 09:39 Active 2.5 ml FLUSH ASDIRECTED PRN Saline Lock Insert [OM.PC] Stat Oth 04/11/20 09:39 Ordered Medication Orders Sodium Chloride (Saline Flush) 10 ml FLUSH ASDIRECTED PRN PRN Reason: Keep Vein Open Last Admin: 04/11/20 09:46 Dose: 10 ml Documented by: SHELBY Sodium Chloride (Saline Flush) 2.5 ml FLUSH ASDIRECTED PRN PRN Reason: Keep Vein Open Last Admin: 04/11/20 09:46 Dose: 2.5 ml Documented by: SHELBY Meds: Medications Generic Name Dose Route Start Last Admin Trade Name Freq PRN Reason Stop Dose Admin Sodium Chloride 10 ml 04/11/20 09:39 04/11/20 09:46 Saline Flush FLUSH 10 ml ASDIRECTED PRN Administration Keep Vein Open Sodium Chloride 2.5 ml 04/11/20 09:39 04/11/20 09:46 Saline Flush FLUSH 2.5 ml ASDIRECTED PRN Administration Keep Vein Open Discontinued Medications Generic Name Dose Route Start Last Admin Trade Name Freq PRN Reason Stop Dose Admin Albuterol/Ipratropium 3 ml 04/11/20 09:39 04/11/20 09:46 Duoneb 3.0-0.5 Mg/3 Ml NEB 04/11/20 09:40 3 ml ONETIME ONE Administration Dexamethasone 10 mg 04/11/20 09:39 04/11/20 09:46 Dexamethasone IVPUSH 04/11/20 09:40 10 mg ONETIME ONE Administration Departure - Departure Time of Disposition: 10:31 Disposition: Home, Self-Care 01 Condition: Good Clinical Impression: Acute asthma Acute asthma exacerbation Qualifiers: Asthma severity: mild Asthma persistence: unspecified Qualified Code(s): J45.901 - Unspecified asthma with (acute) exacerbation - Discharge Information *PRESCRIPTION DRUG MONITORING PROGRAM REVIEWED*: Not Applicable *COPY OF PRESCRIPTION DRUG MONITORING REPORT IN PATIENT ZECHARIAH: Not Applicable Instructions: Asthma, Adult Forms: ED Department Discharge Additional Instructions: The following information is given to patients seen in the emergency department who are being discharged to home. This information is to outline your options for follow-up care. We provide all patients seen in our emergency department with a follow-up referral. The need for follow-up, as well as the timing and circumstances, are variable depending upon the specifics of your emergency department visit. If you don't have a primary care physician on staff, we will provide you with a referral. We always advise you to contact your personal physician following an emergency department visit to inform them of the circumstance of the visit and for follow-up with them and/or the need for any referrals to a consulting specialist. The emergency department will also refer you to a specialist when appropriate. This referral assures that you have the opportunity for follow-up care with a specialist. All of these measure are taken in an effort to provide you with optimal care, which includes your follow-up. Under all circumstances we always encourage you to contact your private physician who remains a resource for coordinating your care. When calling for follow-up care, please make the office aware that this follow-up is from your recent emergency room visit. If for any reason you are refused follow-up, please contact the [facility] Emergency Department at and asked to speak to the emergency department charge nurse. Sepsis Event Note (ED) - Evaluation Sepsis Screening Result: No Definite Risk - Focused Exam Vital Signs: Vital Signs Temp Pulse Resp BP Pulse Ox 04/11/20 09:35 35.9 C L 96 22 H 152/102 H 94 L - My Orders Last 24 Hours: My Active Orders 04/11/20 09:39 EKG Documentation Completion [RC] STAT Sodium Chloride 0.9% [Saline Flush] 10 ml FLUSH ASDIRECTED PRN Sodium Chloride 0.9% [Saline Flush] 2.5 ml FLUSH ASDIRECTED PRN Saline Lock Insert [OM.PC] Stat 04/11/20 10:29 RT Post Treatment Assessment [RC] Click to Edit RT Pre-Treatment Assessment [RC] Click to Edit Albuterol [Ventolin HFA] 2 gm INH ONETIME ONE - Assessment/Plan Last 24 Hours: My Active Orders 04/11/20 09:39 EKG Documentation Completion [RC] STAT Sodium Chloride 0.9% [Saline Flush] 10 ml FLUSH ASDIRECTED PRN Sodium Chloride 0.9% [Saline Flush] 2.5 ml FLUSH ASDIRECTED PRN Saline Lock Insert [OM.PC] Stat 04/11/20 10:29 RT Post Treatment Assessment [RC] Click to Edit RT Pre-Treatment Assessment [RC] Click to Edit Albuterol [Ventolin HFA] 2 gm INH ONETIME ONE
[2020-04-11] MEDS ORDERED: Albuterol 8 GM Inhaler INH ONE (10:29)
[2020-04-11] MEDS ORDERED: Albuterol HFA 18 Gm Inhaler ONE (10:42)
[2020-04-11] MEDS ORDERED: Albuterol 8 GM Inhaler INH SCH (10:45)
[2020-04-11] MEDS ORDERED: Albuterol HFA 18 Gm Inhaler INH PRN (10:46)
[2020-04-11] MEDS ORDERED: Albuterol 8 GM Inhaler INH PRN (10:48)
== END 2020-04-11 11:04 | disposition home or self-care (01) ==
LOC: MW.ED 09:33
DX: J45.901 Unspecified asthma with (acute) exacerbation (principal); Z79.899 Other long term (current) drug therapy
CPT/HCPCS: 93005; 96374; 99284; J1100; 93010; 99283; J3535-GY; J7620-GY

== ENCOUNTER 2020-05-04 22:10 | Emergency (ER) | payer SELFPAY ==
[2020-05-04] MEDS ORDERED: predniSONE 10 MG Tab PO ONE (22:31)
[2020-05-04] MEDS ORDERED: Albuterol HFA 18 Gm Inhaler INH PRN (22:32)
[2020-05-04] MEDS ORDERED: Albuterol HFA 18 Gm Inhaler ONE (22:35)
--- NOTE | 2020-05-04 22:39 | EDM.PDOC ---
ED HPI GENERAL MEDICAL PROBLEM - General Chief Complaint: Respiratory Problem Stated Complaint: ASTHMA ATTACK Time Seen by Provider: 05/04/20 22:25 - History of Present Illness INITIAL COMMENTS - FREE TEXT/NARRATIVE: HISTORY AND PHYSICAL: History of present illness: This a 29-year-old gentleman with a history significant for asthma who presents ER today secondary to shortness of breath and an exacerbation of his asthma. Patient reports that he has a prescription for albuterol as well as Symbicort that he has not filled secondary to financial restraints. Patient denies any recent fevers, shakes, chills, nausea, vomiting, diarrhea, dysuria, frequency, urgency, chest pain, URI symptoms, cough, rhinorrhea, coronavirus concerns, coronavirus exposures. Patient reports that this evening he started getting short of breath and felt like he was wheezing so called EMS. In route by EMS he reports he received 1 nebulized treatment and feels almost completely back to baseline at this time. Patient denies any history of hypertension, diabetes, liver, lung, kidney problems. Patient has any tobacco, alcohol, drug use. Patient reports he occasionally uses marijuana but only uses edibles and does not use any smoking products. Patient has no known drug allergies. Patient reports he has an appointment with a acting teacher in [place] in the next 1 to 2 weeks. Review of systems: MDM: Nurses notes reviewed and agree with ANNITA STEVENS V/S. Any exceptions to agreement documented on physician record. Other than the symptoms associated with the present events, the following is reported with regard to recent health: General: (-) fever. HENT: (-) congestion. Respiratory: (-) cough. Cardiovascular:(-) chest pain. GI: (-) abdominal pain : (-) urinary complaints. Musculoskeletal: (-) other aches or pains. Endocrine: (-) generalized weakness. Neurological: (-) localized weakness. Psychiatric: (-)emotional stress Past medical history: As per history of present illness and as reviewed below otherwise noncontributory. Surgical history: As per history of present illness and as reviewed below otherwise noncontributory. Social history: No reported history of drug or alcohol abuse. Family history: As per history of present illness and as reviewed below otherwise noncontributory. Physical exam: Constitutional: Patient is oriented to person, place, and time. Appears well- developed and well-nourished. No distress. HEENT: Moist mucous membranes Head: Normocephalic and atraumatic Eyes: Right eye exhibits no discharge. Left eye exhibits no discharge. No scleral icterus Neck: Normal range of motion. No tracheal deviation present. Cardiovascular: Normal rate and regular rhythm. Pulmonary: Effort normal, no respiratory distress. Clear without any wheezing rales or rhonchi. Patient is ambulating the ED without any increase shortness of breath or wheezing upon stressing him. Abdominal: No distention Musculoskeletal: Normal range of motion Neurologic: Alert and oriented to person, place and time. Skin: [place], warm and dry. Psychiatric: Normal mood and affect. Behavior is normal. Judgment and thought content normal. Nursing note and vital signs have been reviewed Diagnostics: No x-ray indicated. Therapeutics: Patient given albuterol MDI 2 puffs x 1 in the ED. Assessment and plan: Is a 29-year-old gentleman with history significant for asthma who presents ER today secondary to shortness of breath and wheezing consistent with his typical asthma exacerbation. Patient reports that if he had his albuterol at home he would have likely not needed to call the ambulance. In the ED, the patient reports that he feels completely back to baseline after receiving 1 neb treatment by EMS. In the ED patient will receive 2 puffs of an albuterol MDI to assist him with his asthma. Patient will be given prednisone 40 mg p.o. daily x5. Return precautions have been discussed with the patient. Reassessment at the time of disposition demonstrates that the patient is in no acute distress. The patient has remained stable throughout the entire ED visit and is without objective evidence for acute process requiring urgent intervention or hospitalization. The patient is stable for discharge, counseling is provided as documented above, discussed symptomatic treatment and specific conditions for return. I have spoken with the patient/caregiver and discussed todays findings, in addition to providing specific details for the plan of care. Questions are answered and there is agreement with the plan. Definitive disposition and diagnosis as appropriate pending reevaluation and review of above. Treatments COTTON STOMPER: Reports: Breathing Treatments Other Treatments COTTON STOMPER: duoneb x 1 - Related Data Allergies Allergy/AdvReac Type Severity Reaction Status Date / Time No Known Allergies Allergy Verified 05/04/20 22:17 Home Meds: Home Meds Budesonide/Formoterol Fumarate [Symbicort 160-4.5 Mcg Inhaler] 2 puff IH BID 02/27/20 [History] Albuterol Sulfate [Proair Hfa] 2 puff IN Q4H PRN 03/19/20 [History] Albuterol Sulfate [Albuterol Sulfate Hfa] 8.5 gm IH Q4HR #1 hfa.aer.ad 04/11/20 [Rx] Albuterol [Proventil] 2.5 mg .XX QID #1 box 04/11/20 [Rx] predniSONE [Prednisone] 50 mg PO DAILY #5 tablet 05/04/20 [Rx] Past Medical History - Past Health History Medical/Surgical History: Denies Medical/Surgical History HEENT History: Reports: None Cardiovascular History: Reports: None Respiratory History: Reports: Asthma Gastrointestinal History: Reports: None Genitourinary History: Reports: None Musculoskeletal History: Reports: None Neurological History: Reports: None Psychiatric History: Reports: None Endocrine/Metabolic History: Reports: Obesity/BMI 30+ Hematologic History: Reports: None Immunologic History: Reports: None Oncologic (Cancer) History: Reports: None Dermatologic History: Reports: None - Infectious Disease History Infectious Disease History: Reports: Chicken Pox - Past Surgical History Head Surgeries/Procedures: Reports: None Oncologic Surgical History: Reports: None Dermatological Surgical History: Reports: None Social & Family History - Family History Family Medical History: Noncontributory - Tobacco Use Tobacco Use Status *Q: Never Tobacco User Second Hand Smoke Exposure: No - Caffeine Use Caffeine Use: Reports: None - Recreational Drug Use Recreational Drug Use: No ED ROS GENERAL - Review of Systems Review Of Systems: See Below ED EXAM, GENERAL - Physical Exam Exam: See Below Course - Vital Signs Last Recorded V/S: Last Vital Signs Temp 97.4 F 05/04/20 22:15 Pulse 99 05/04/20 22:15 Resp 18 05/04/20 22:15 BP 138/82 05/04/20 22:15 Pulse Ox 95 05/04/20 22:15 - Orders/Labs/Meds Orders: Active Orders 24 hr Category Date Time Status RT Post Treatment Assessment [RC] Click to Edit Care 05/04/20 22:33 Active RT Pre-Treatment Assessment [RC] Click to Edit Care 05/04/20 22:33 Active Albuterol [Ventolin HFA] Med 05/04/20 22:32 Ordered 1 gm INH Q2H PRN Medication Orders Albuterol (Ventolin Hfa) 1 gm INH Q2H PRN PRN Reason: Shortness of Breath Meds: Medications Generic Name Dose Route Start Last Admin Trade Name Freq PRN Reason Stop Dose Admin Albuterol 1 gm 05/04/20 22:32 Ventolin Hfa INH Q2H PRN Shortness of Breath Discontinued Medications Generic Name Dose Route Start Last Admin Trade Name Freq PRN Reason Stop Dose Admin Prednisone 40 mg 05/04/20 22:31 Prednisone PO 05/04/20 22:32 ONETIME ONE Departure - Departure Time of Disposition: 22:37 Disposition: Home, Self-Care 01 Condition: Good Clinical Impression: Noncompliance with medication regimen, Acute asthma exacerbation - Discharge Information Instructions: Asthma, Adult Additional Instructions: You were seen and treated in the ER today secondary to an asthma exacerbation. You have been given an albuterol MDI to utilize at home until you are able to afford to obtain 1 in the future. Please make sure you talk to your acting teacher that you have an appointment with in [place] regarding different options that might be more cost affordable for you. Please take prednisone 50 mg daily for 5 more days. The following information is given to patients seen in the emergency department who are being discharged to home. This information is to outline your options for follow-up care. We provide all patients seen in our emergency department with a follow-up referral. The need for follow-up, as well as the timing and circumstances, are variable depending upon the specifics of your emergency department visit. If you don't have a primary care physician on staff, we will provide you with a referral. We always advise you to contact your personal physician following an emergency department visit to inform them of the circumstance of the visit and for follow-up with them and/or the need for any referrals to a consulting specialist. The emergency department will also refer you to a specialist when appropriate. This referral assures that you have the opportunity for follow-up care with a specialist. All of these measure are taken in an effort to provide you with optimal care, which includes your follow-up. Under all circumstances we always encourage you to contact your private physician who remains a resource for coordinating your care. When calling for follow-up care, please make the office aware that this follow-up is from your recent emergency room visit. If for any reason you are refused follow-up, please contact the [facility] Emergency Department at and asked to speak to the emergency department charge nurse. Sepsis Event Note (ED) - Evaluation Sepsis Screening Result: No Definite Risk - Focused Exam Vital Signs: Vital Signs Temp Pulse Resp BP Pulse Ox 05/04/20 22:15 97.4 F 99 18 138/82 95 - My Orders Last 24 Hours: My Active Orders 05/04/20 22:32 Albuterol [Ventolin HFA] 1 gm INH Q2H PRN 05/04/20 22:33 RT Post Treatment Assessment [RC] Click to Edit RT Pre-Treatment Assessment [RC] Click to Edit - Assessment/Plan Last 24 Hours: My Active Orders 05/04/20 22:32 Albuterol [Ventolin HFA] 1 gm INH Q2H PRN 05/04/20 22:33 RT Post Treatment Assessment [RC] Click to Edit RT Pre-Treatment Assessment [RC] Click to Edit
== END 2020-05-04 22:47 | disposition home or self-care (01) ==
LOC: MW.ED 22:10
DX: J45.901 Unspecified asthma with (acute) exacerbation (principal); E66.9 Obesity, unspecified; Z91.14 Patient's other noncompliance with medication regimen; Z79.899 Other long term (current) drug therapy
CPT/HCPCS: 99284; A9270; 99283; J3535-GY

== ENCOUNTER 2020-05-23 18:23 | Emergency (ER) | payer SELFPAY ==
[2020-05-23] MEDS ORDERED: predniSONE 20 MG Tab PO ONE (18:29)
--- NOTE | 2020-05-23 18:47 | EDM.PDOC ---
ED HPI GENERAL MEDICAL PROBLEM - General Chief Complaint: Respiratory Problem Stated Complaint: SOB Time Seen by Provider: 05/23/20 18:24 Source of Information: Reports: Patient History Limitations: Reports: No Limitations - History of Present Illness INITIAL COMMENTS - FREE TEXT/NARRATIVE: HISTORY AND PHYSICAL: History of present illness: Patient is a 29-year-old male who presents to the emergency room with complaints of shortness of breath and cough. Patient has a longstanding history of asthma and has not been able to afford his Symbicort. He has not taken this in a few months. He recently ran out of his Pro-Air inhaler 2 days ago and have having increased respiratory symptoms. States EMS gave him an DUO NEB treatment and he feels better. Patient denies any fever, chills, headache, change in vision, syncope or near syncope. Denies any chest pain, back pain, shortness of breath or cough. Denies any abdominal pain, nausea, vomiting, diarrhea, constipation or dysuria. Has not noted any blood in urine or stool. Patient has been eating and drinking appropriately. Review of systems: As per history of present illness and below otherwise all systems reviewed and negative. Past medical history: As per history of present illness and as reviewed below otherwise noncontributory. Surgical history: As per history of present illness and as reviewed below otherwise noncontributory. Social history: See social history for further information Family history: As per history of present illness and as reviewed below otherwise noncontributory. Physical exam: General: Well developed and well nourished 29 year old [place] . Alert and orientated x 3. Nontoxic in appearance and in no acute distress. Vital signs are stable and have been reviewed by me. Nursing notes were reviewed. HEENT: Atraumatic, normocephalic, pupils equal and reactive bilaterally, negative for conjunctival pallor or scleral icterus, mucous membranes moist, neck supple, nontender, trachea midline. No drooling or trismus noted. No meningeal signs. No hot potato voice noted. Lungs: Slightly poor air exchange throughout to auscultation, breath sounds equal bilaterally, chest nontender. Normal work of breathing, no accessory muscles used. Heart: S1S2, regular rate and rhythm without overt murmur Abdomen: Soft, nondistended, nontender. Skin: Intact, warm, dry. No lesions or rashes noted. Hematologic: No petechiae or purpra. Mucosa appropriate color and normal nail bed color and refill. Extremities: Atraumatic, moves all extremities per self without difficulty or deficits, negative for cords or calf pain. Neurovascular unremarkable. Neuro: Awake, alert, oriented. Cranial nerves II through XII unremarkable. Cerebellum unremarkable. Motor and sensory unremarkable throughout. Exam nonfocal. Psychiatric: Mood and affect are appropriate. Normal thought process. Answering questions appropriately. Notes: Using shared decision making the patient does not want any labs or x-rays at this time as he does feel improved after the DuoNeb. His vital signs are stable and his oxygen saturation is appropriate. I will refill his medications. He requests an inhaler be dispensed before discharge. I have talked with the patient about today's findings, in addition to providing specific details for plan of care. Reassessment at the time of disposition demonstrates that the patient is in no acute distress. The patient is stable for discharge, counseling was provided and we discussed in great detail signs and symptoms that would prompt them to return to the Emergency Department. Medication, follow up and supportive care measures were reviewed and discussed. Voices understanding and is agreeable to plan of care. Denies any further questions or concerns at this time. Diagnostics: None/Declines Therapeutics: Prednisone, Albuterol inhaler Prescription: Prednisone, Duo Neb, Pro-Air Impression: Asthma Exacerbation Plan: 1. Today your oxygen saturation improved after the nebulizer treatment. With joint decision making, we decided against doing any labs or x-ray today; but if you feel your symptoms should worsen, new symptoms develop or any of the signs and symptoms we discussed should arise please return to the emergency room or call 911 (if needed). 2. I have given you multiple refills on both the DuoNeb and inhaler. You can pick this up at [facility]. You will need to get a nebulizer machine which is available at [facility] as well, just ask them where they are. You can do the nebulizer every 4 hours as needed. 3. We encourage you to follow up with your primary care provider and/or recommended specialist in the next few days for re-evaluation and further care/management. Definitive disposition and diagnosis as appropriate pending reevaluation and review of above. - Related Data Allergies Allergy/AdvReac Type Severity Reaction Status Date / Time No Known Allergies Allergy Verified 05/23/20 18:28 Home Meds: Home Meds Budesonide/Formoterol Fumarate [Symbicort 160-4.5 Mcg Inhaler] 2 puff IH BID 02/27/20 [History] Albuterol Sulfate [Albuterol Sulfate Hfa] 8.5 gm IH Q4HR #1 hfa.aer.ad 04/11/20 [Rx] Albuterol Sulfate [Proair Hfa] 2 puff IH Q4H PRN #1 hfa.aer.ad 05/23/20 [Rx] Albuterol/Ipratropium [DuoNeb 3.0-0.5 MG/3 ML] 1 ampule INH Q4HR PRN #1 box 05/23/20 [Rx] predniSONE [Prednisone] 40 mg PO DAILY 4 Days #8 tablet 05/23/20 [Rx] Past Medical History - Past Health History Medical/Surgical History: Denies Medical/Surgical History HEENT History: Reports: None Cardiovascular History: Reports: None Respiratory History: Reports: Asthma Gastrointestinal History: Reports: None Genitourinary History: Reports: None Musculoskeletal History: Reports: None Neurological History: Reports: None Psychiatric History: Reports: None Endocrine/Metabolic History: Reports: Obesity/BMI 30+ Hematologic History: Reports: None Immunologic History: Reports: None Oncologic (Cancer) History: Reports: None Dermatologic History: Reports: None - Infectious Disease History Infectious Disease History: Reports: Chicken Pox - Past Surgical History Head Surgeries/Procedures: Reports: None HEENT Surgical History: Reports: None Cardiovascular Surgical History: Reports: None Respiratory Surgical History: Reports: None GI Surgical History: Reports: None Male Surgical History: Reports: None Endocrine Surgical History: Reports: None Neurological Surgical History: Reports: None Musculoskeletal Surgical History: Reports: None Oncologic Surgical History: Reports: None Dermatological Surgical History: Reports: None Social & Family History - Family History Family Medical History: No Pertinent Family History - Tobacco Use Tobacco Use Status *Q: Never Tobacco User - Caffeine Use Caffeine Use: Reports: None - Recreational Drug Use Recreational Drug Use: No ED ROS GENERAL - Review of Systems Review Of Systems: Comprehensive ROS is negative, except as noted in HPI. ED EXAM, GENERAL - Physical Exam Exam: See Below (See dictation) Course - Vital Signs Last Recorded V/S: Last Vital Signs Temp 96.7 F L 05/23/20 18:24 Pulse 83 05/23/20 18:24 Resp 16 05/23/20 18:24 BP 155/92 H 05/23/20 18:24 Pulse Ox 97 05/23/20 18:24 - Orders/Labs/Meds Meds: Medications Discontinued Medications Generic Name Dose Route Start Last Admin Trade Name Freq PRN Reason Stop Dose Admin Albuterol Confirm 05/23/20 19:15 05/23/20 19:21 Ventolin Hfa Administered 05/23/20 19:16 1 inhaler Dose Administration 18 gm .ROUTE .STK-MED ONE Prednisone 40 mg 05/23/20 18:29 05/23/20 18:36 Prednisone PO 05/23/20 18:30 40 mg ONETIME ONE Administration Departure - Departure Time of Disposition: 18:47 Disposition: Home, Self-Care 01 Clinical Impression: Asthma exacerbation Qualifiers: Asthma severity: mild Asthma persistence: unspecified Qualified Code(s): J45.901 - Unspecified asthma with (acute) exacerbation - Discharge Information Prescriptions: Albuterol/Ipratropium [DuoNeb 3.0-0.5 MG/3 ML] 1 ampule INH Q4HR PRN #1 box PRN Reason: Shortness Of Breath predniSONE [Prednisone] 40 mg PO DAILY 4 Days #8 tablet Albuterol Sulfate [Proair Hfa] 2 puff IH Q4H PRN #1 hfa.aer.ad PRN Reason: Dyspnea Instructions: Asthma, Adult, [id number] Forms: ED Department Discharge Additional Instructions: The following information is given to patients seen in the emergency department who are being discharged to home. This information is to outline your options for follow-up care. We provide all patients seen in our emergency department with a follow-up referral. The need for follow-up, as well as the timing and circumstances, are variable depending upon the specifics of your emergency department visit. If you don't have a primary care physician on staff, we will provide you with a referral. We always advise you to contact your personal physician following an emergency department visit to inform them of the circumstance of the visit and for follow-up with them and/or the need for any referrals to a consulting specialist. The emergency department will also refer you to a specialist when appropriate. This referral assures that you have the opportunity for follow-up care with a specialist. All of these measure are taken in an effort to provide you with optimal care, which includes your follow-up. Under all circumstances we always encourage you to contact your private physician who remains a resource for coordinating your care. When calling for follow-up care, please make the office aware that this follow-up is from your recent emergency room visit. If for any reason you are refused follow-up, please contact the [facility] Emergency Department at and asked to speak to the emergency department charge nurse. [facility] [address] [place] [id number] [facility] [address] [place] [phone] Thank you for choosing the [facility] emergency department in [place] for your medical needs today. It was a pleasure caring for you. Today you were seen in the emergency department for asthma exacerbation. 1. Today your oxygen saturation improved after the nebulizer treatment. With joint decision making, we decided against doing any labs or x-ray today; but if you feel your symptoms should worsen, new symptoms develop or any of the signs and symptoms we discussed should arise please return to the emergency room or call 911 (if needed). 2. I have given you multiple refills on both the DuoNeb and inhaler. You can pick this up at [facility]. You will need to get a nebulizer machine which is available at [facility] as well, just ask them where they are. You can do the nebulizer every 4 hours as needed. 3. We encourage you to follow up with your primary care provider and/or recommended specialist in the next few days for re-evaluation and further care/management. Sepsis Event Note (ED) - Evaluation Sepsis Screening Result: No Definite Risk - Focused Exam Vital Signs: Vital Signs Temp Pulse Resp BP Pulse Ox 05/23/20 18:24 96.7 F L 83 16 155/92 H 97
[2020-05-23] MEDS ORDERED: Albuterol HFA 18 Gm Inhaler ONE (19:15)
== END 2020-05-23 19:18 | disposition home or self-care (01) ==
LOC: MW.ED 18:23
DX: J45.901 Unspecified asthma with (acute) exacerbation (principal); E66.9 Obesity, unspecified; Z68.41 Body mass index [BMI] 40.0-44.9, adult
CPT/HCPCS: 99284; A9270; J3535-GY

== ENCOUNTER 2020-06-08 06:35 | Emergency (ER) | payer SELFPAY ==
[2020-06-08] MEDS ORDERED: Albuterol HFA 18 Gm Inhaler INH STA (07:13)
--- NOTE | 2020-06-08 07:18 | EDM.PDOC ---
ED HPI GENERAL MEDICAL PROBLEM - General Chief Complaint: Respiratory Problem Stated Complaint: AMB. Time Seen by Provider: 06/08/20 07:08 Source of Information: Reports: Patient History Limitations: Reports: No Limitations - History of Present Illness INITIAL COMMENTS - FREE TEXT/NARRATIVE: Patient is a 29-year-old male who presents today for shortness of breath. Patient states he has a history of asthma and this morning he woke up with wheezing and chest tightness. Patient states that he slept with the window open last night which she normally does not. Patient denies any coughing fevers chills nausea vomiting. Patient also states due to financial reason he has not had his inhaler and cannot use one at home. - Related Data Allergies Allergy/AdvReac Type Severity Reaction Status Date / Time No Known Allergies Allergy Verified 06/08/20 06:43 Home Meds: Home Meds Budesonide/Formoterol Fumarate [Symbicort 160-4.5 Mcg Inhaler] 2 puff IH BID 02/27/20 [History] Albuterol Sulfate [Proair Hfa] 2 puff IH Q4H PRN #1 [email or web address] 05/23/20 [Rx] Past Medical History - Past Health History Medical/Surgical History: Denies Medical/Surgical History HEENT History: Reports: None Cardiovascular History: Reports: None Respiratory History: Reports: Asthma Gastrointestinal History: Reports: None Genitourinary History: Reports: None Musculoskeletal History: Reports: None Neurological History: Reports: None Psychiatric History: Reports: None Endocrine/Metabolic History: Reports: Obesity/BMI 30+ Insulin Pump Model and Safety Relief Valve Technician: None Hematologic History: Reports: None Immunologic History: Reports: None Oncologic (Cancer) History: Reports: None Dermatologic History: Reports: None - Infectious Disease History Infectious Disease History: Reports: Chicken Pox - Past Surgical History Head Surgeries/Procedures: Reports: None HEENT Surgical History: Reports: None Cardiovascular Surgical History: Reports: None Respiratory Surgical History: Reports: None GI Surgical History: Reports: None Male Surgical History: Reports: None Endocrine Surgical History: Reports: None Neurological Surgical History: Reports: None Musculoskeletal Surgical History: Reports: None Oncologic Surgical History: Reports: None Dermatological Surgical History: Reports: None Social & Family History - Family History Family Medical History: No Pertinent Family History - Tobacco Use Tobacco Use Status *Q: Never Tobacco User - Caffeine Use Caffeine Use: Reports: None - Recreational Drug Use Recreational Drug Use: No ED ROS GENERAL - Review of Systems Review Of Systems: See Below Constitutional: Reports: No Symptoms HEENT: Reports: No Symptoms Respiratory: Reports: Wheezing Cardiovascular: Reports: No Symptoms Endocrine: Reports: No Symptoms GI/Abdominal: Reports: No Symptoms : Reports: No Symptoms Musculoskeletal: Reports: No Symptoms Skin: Reports: No Symptoms Neurological: Reports: No Symptoms Psychiatric: Reports: No Symptoms Hematologic/Lymphatic: Reports: No Symptoms Immunologic: Reports: No Symptoms ED EXAM, GENERAL - Physical Exam Exam: See Below Exam Limited By: No Limitations General Appearance: Alert, No Apparent Distress Head: Atraumatic Respiratory/Chest: No Respiratory Distress, Wheezing Cardiovascular: Normal Peripheral Pulses, Regular Rate, Rhythm Neurological: Alert, Oriented, Normal Cognition, Normal Gait Psychiatric: Normal Affect Course - Vital Signs Last Recorded V/S: Last Vital Signs Temp 97.5 F 06/08/20 06:35 Pulse 86 06/08/20 06:35 Resp 20 06/08/20 06:35 BP 110/89 06/08/20 06:35 Pulse Ox 98 06/08/20 06:35 - Orders/Labs/Meds Orders: Active Orders 24 hr Category Date Time Status RT Post Treatment Assessment [RC] Click to Edit Care 06/08/20 07:14 Active RT Pre-Treatment Assessment [RC] Click to Edit Care 06/08/20 07:14 Active Meds: Medications Discontinued Medications Generic Name Dose Route Start Last Admin Trade Name Luis M PRN Reason Stop Dose Admin Albuterol 2 gm 06/08/20 07:13 06/08/20 07:19 Ventolin Hfa INH 06/08/20 07:14 2 puff NOW STA Administration - Re-Assessments/Exams Free Text/Narrative Re-Assessment/Exam: 06/08/20 07:34 Was given inhaler feels a lot better lungs are clear patient will be discharged home and given inhaler to take home that he was here. Departure - Departure Time of Disposition: 07:34 Disposition: Home, Self-Care 01 Condition: Good Clinical Impression: Asthma Qualifiers: Asthma severity: unspecified severity Asthma persistence: unspecified Asthma complication type: unspecified Qualified Code(s): J45.909 - Unspecified asthma, uncomplicated - Discharge Information *PRESCRIPTION DRUG MONITORING PROGRAM REVIEWED*: Not Applicable *COPY OF PRESCRIPTION DRUG MONITORING REPORT IN PATIENT ZECHARIAH: Not Applicable Instructions: Asthma, Adult Referrals: PCP,None [Primary Care Provider] - Forms: ED Department Discharge Additional Instructions: The following information is given to patients seen in the emergency department who are being discharged to home. This information is to outline your options for follow-up care. We provide all patients seen in our emergency department with a follow-up referral. The need for follow-up, as well as the timing and circumstances, are variable depending upon the specifics of your emergency department visit. If you don't have a primary care physician on staff, we will provide you with a referral. We always advise you to contact your personal physician following an emergency department visit to inform them of the circumstance of the visit and for follow-up with them and/or the need for any referrals to a consulting specialist. The emergency department will also refer you to a specialist when appropriate. This referral assures that you have the opportunity for follow-up care with a specialist. All of these measure are taken in an effort to provide you with optimal care, which includes your follow-up. Under all circumstances we always encourage you to contact your private physician who remains a resource for coordinating your care. When calling for follow-up care, please make the office aware that this follow-up is from your recent emergency room visit. If for any reason you are refused follow-up, please contact the [facility] Emergency Department at and asked to speak to the emergency department charge nurse. Please follow up with your primary care physician. If you do not have a primary care physician, see below: [facility] [address] [place] [id number] [facility] [address] [place] [id number] Please attempt to follow-up with your primary care physician. If you have any increased shortness of breath please return to the ED. Sepsis Event Note (ED) - Evaluation Sepsis Screening Result: No Definite Risk - Focused Exam Vital Signs: Vital Signs Temp Pulse Resp BP Pulse Ox 06/08/20 06:35 97.5 F 86 20 110/89 98 - My Orders Last 24 Hours: My Active Orders 06/08/20 07:14 RT Post Treatment Assessment [RC] Click to Edit RT Pre-Treatment Assessment [RC] Click to Edit - Assessment/Plan Last 24 Hours: My Active Orders 06/08/20 07:14 RT Post Treatment Assessment [RC] Click to Edit RT Pre-Treatment Assessment [RC] Click to Edit Plan: Patient is a 29-year-old male who presents today for wheezing. Patient has some slight wheeze on the left. Patient ox level is 98% 200% on room air. Will give an albuterol treatment and reassess.
== END 2020-06-08 07:43 | disposition home or self-care (01) ==
LOC: MW.ED 06:35
DX: J45.909 Unspecified asthma, uncomplicated (principal); E66.9 Obesity, unspecified; Z68.39 Body mass index [BMI] 39.0-39.9, adult; Z79.899 Other long term (current) drug therapy
CPT/HCPCS: 99283; 99285-25; J3535-GY

== ENCOUNTER 2020-07-26 08:22 | Emergency (ER) | payer SELFPAY ==
[2020-07-26] MEDS ORDERED: Albuterol HFA 18 Gm Inhaler INH PRN (08:49)
[2020-07-26] MEDS ORDERED: predniSONE 10 MG Tab PO ONE (08:50)
[2020-07-26] MEDS ORDERED: Albuterol 8 GM Inhaler INH ONE (09:02)
[2020-07-26] MEDS ORDERED: Dexamethasone 4 MG Tab PO ONE (09:17)
--- NOTE | 2020-07-26 09:22 | EDM.PDOC ---
ED HPI GENERAL MEDICAL PROBLEM - General Chief Complaint: Asthma Stated Complaint: ASTHMA Time Seen by Provider: 07/26/20 08:48 - History of Present Illness INITIAL COMMENTS - FREE TEXT/NARRATIVE: CHIEF COMPLAINT(S): Asthma HISTORY OF PRESENT ILLNESS: This is a 30-year-old man and with a past medical history of asthma who comes to the emergency department with a chief complaint of asthma. The patient states that since this morning he started experiencing some mild shortness of breath. He states that he is out of his inhaler. He states that he does not have any insurance and is not able to afford his inhalers. He states that he was on Symbicort which was controlling his asthma however given that he cannot afford it he is no longer using it. He states that he has been using albuterol approximately every 4 hours. He denies any cough, fever, chills. He denies any Covid exposures. He denies any other symptoms. REVIEW OF SYSTEMS: Constitutional: Denies fever, chills. Eyes: Denies eye pain Ears, Nose, Mouth, & Throat: Denies earache Cardiovascular: Denies chest pain Respiratory: Positive for shortness of breath and wheezing Gastrointestinal: Denies Nausea, vomiting, diarrhea, hematochezia. Genitourinary: Denies hematuria Skin:Denies a rash Neurological: Denies blurred vision Psychiatric: Denies depression PAST MEDICAL HISTORY: As per history of present illness and as reviewed below otherwise noncontributory. SURGICAL HISTORY: As per history of present illness and as reviewed below otherwise noncontributory. SOCIAL HISTORY: As per history of present illness and as reviewed below otherwise noncontributory. FAMILY HISTORY: As per history of present illness and as reviewed below otherwise noncontributory. EXAMINATION OF ORGAN SYSTEMS/BODY AREAS: Constitutional: Blood pressure was 154/86, heart rate 96, respiratory rate 18 with an oxygen saturation 97% on room air. Temperature 36.1 General: Obese gentleman who does not appear to be in acute distress Psychiatric: Appropriate mood and affect. Eyes: No scleral icterus or conjunctival erythema ENMT: Moist mucous membranes. No pharyngeal erythema Cardiovascular: Regular, rate, and rhythm. No gallops, murmurs, or rubs. Bilateral upper extremity pulses symmetric and intact. No peripheral edema. No JVD. Respiratory: Patient is speaking in full sentences. No increased work of breathing. There is mild bilateral expiratory wheezing. The wheezing is symmetric. I do not hear any crackles. Gastrointestinal: Soft, non-tender, non-distended. Normoactive bowel sounds Genitourinary: No suprapubic tenderness Musculoskeletal: Normal range of motion. Skin: No lesions or abrasions. Neurological: Alert, GCS 15 MEDICAL DECISION MAKING AND COURSE IN THE ED WITH INTERPRETATION/REVIEW OF DIAGNOSTIC STUDIES: This is a 30-year-old man with a past medical history of asthma who comes to the emergency department with mild acute asthma exacerbation likely secondary to inability to fill his medications. At this time we will provide the patient with albuterol via MDI and prednisone by mouth. I do not believe the patient requires any further imaging or work-up. We will reevaluate the patient after albuterol administration. After albuterol administration the patient no longer had any wheezing and had clear breath sounds bilaterally and still speaking in full sentences. The patient was saturating well on room air. I did discuss the importance of following with primary care physician for which he does not have been we will provide. I also discussed with him that we would be providing him with resources in order to obtain medical insurance so that he could obtain his asthma medications. He did express understanding was amenable to discharge at this time and had no further questions. DISPOSITION: The patient was discharged home in stable condition. The patient will follow up with primary care clinic within 1 CONDITION: Fair PROCEDURES: None FINAL IMPRESSION(S)/DIAGNOSES: 1. Acute asthma exacerbation Ja Olivo M.D. Chest Pain Score (Numeric/FACES): 2 - Related Data Allergies Allergy/AdvReac Type Severity Reaction Status Date / Time No Known Allergies Allergy Verified 07/26/20 08:34 Home Meds: Home Meds Albuterol Sulfate [Albuterol Sulfate Hfa] 2 puff INH ASDIRECTED 07/31/19 [His tory] Past Medical History - Past Health History Medical/Surgical History: Denies Medical/Surgical History HEENT History: Reports: None Cardiovascular History: Reports: None Respiratory History: Reports: Asthma Gastrointestinal History: Reports: None Genitourinary History: Reports: None Musculoskeletal History: Reports: None Neurological History: Reports: None Psychiatric History: Reports: None Endocrine/Metabolic History: Reports: Obesity/BMI 30+ Insulin Pump Model and Applications Project Manager: None Hematologic History: Reports: None Immunologic History: Reports: None Oncologic (Cancer) History: Reports: None Dermatologic History: Reports: None - Infectious Disease History Infectious Disease History: Reports: Chicken Pox - Past Surgical History Head Surgeries/Procedures: Reports: None HEENT Surgical History: Reports: None Cardiovascular Surgical History: Reports: None Respiratory Surgical History: Reports: None GI Surgical History: Reports: None Male Surgical History: Reports: None Endocrine Surgical History: Reports: None Neurological Surgical History: Reports: None Musculoskeletal Surgical History: Reports: None Oncologic Surgical History: Reports: None Dermatological Surgical History: Reports: None Social & Family History - Family History Family Medical History: No Pertinent Family History - Tobacco Use Tobacco Use Status *Q: Never Tobacco User - Caffeine Use Caffeine Use: Reports: Energy Drinks, None - Recreational Drug Use Recreational Drug Use: No ED ROS GENERAL - Review of Systems Review Of Systems: See Below ED EXAM, GENERAL - Physical Exam Exam: See Below Course - Vital Signs Last Recorded V/S: Last Vital Signs Temp 36.1 C 07/26/20 08:38 Pulse 87 07/26/20 09:34 Resp 18 07/26/20 08:38 BP 145/70 H 07/26/20 09:34 Pulse Ox 98 07/26/20 09:34 - Orders/Labs/Meds Meds: Medications Discontinued Medications Generic Name Dose Route Start Last Admin Trade Name Freq PRN Reason Stop Dose Admin Albuterol 8 gm 07/26/20 08:49 Ventolin Hfa INH Q2H PRN Shortness of Breath Albuterol Confirm 07/26/20 09:02 07/26/20 09:10 Ventolin Hfa Administered 07/26/20 09:03 1 dose Dose Administration 8 gm INH .STK-MED ONE Dexamethasone 10 mg 07/26/20 09:17 07/26/20 09:33 Dexamethasone PO 07/26/20 09:18 10 mg ONETIME ONE Administration Prednisone 50 mg 07/26/20 08:50 07/26/20 09:10 Prednisone PO 07/26/20 08:51 50 mg ONETIME ONE Administration Departure - Departure Time of Disposition: 09:19 Disposition: Home, Self-Care 01 Condition: Fair Clinical Impression: Acute asthma exacerbation Qualifiers: Asthma severity: moderate Asthma persistence: persistent Qualified Code(s): J45.41 - Moderate persistent asthma with (acute) exacerbation - Discharge Information *PRESCRIPTION DRUG MONITORING PROGRAM REVIEWED*: No *COPY OF PRESCRIPTION DRUG MONITORING REPORT IN PATIENT ZECHARIAH: No Instructions: Asthma, Adult, [id number] Referrals: PCP,None [Primary Care Provider] - Forms: ED Department Discharge Additional Instructions: Your evaluated today on an emergent basis. At this time I do believe you have moderate persistent asthma and your exacerbation today was likely due to running out of your medication. I recommend continued use of albuterol every 4-6 hours as needed for wheezing. It is going to be extremely important for you to follow-up with primary care physician so they can hopefully arrange medical insurance for you so that you can obtain your Symbicort. Please return to the emergency department for any new or worsening symptoms. [facility] [address] [place], [place] [id number] [facility] [address] [place] [phone] The patient is informed of any results of their evaluation and diagnostic workup and all questions are answered. They are given discharge instructions and return precautions. The patient is stable for discharge. The patient states they understand and agree with the plan and that they will return if their symptoms get worse or if they have any new concerns. The following information is given to patients seen in the emergency department who are being discharged to home. This information is to outline your options for follow-up care. We provide all patients seen in our emergency department with a follow-up referral. The need for follow-up, as well as the timing and circumstances, are variable depending upon the specifics of your emergency department visit. If you don't have a primary care physician on staff, we will provide you with a referral. We always advise you to contact your personal physician following an emergency department visit to inform them of the circumstance of the visit and for follow-up with them and/or the need for any referrals to a consulting specialist. The emergency department will also refer you to a specialist when appropriate. This referral assures that you have the opportunity for follow-up care with a specialist. All of these measure are taken in an effort to provide you with optimal care, which includes your follow-up. Under all circumstances we always encourage you to contact your private physician who remains a resource for coordinating your care. When calling for follow-up care, please make the office aware that this follow-up is from your recent emergency room visit. If for any reason you are refused follow-up, please contact the [facility] Emergency Department at and asked to speak to the emergency department charge nurse. Sepsis Event Note (ED) - Evaluation Sepsis Screening Result: No Definite Risk - Focused Exam Vital Signs: Vital Signs Temp Pulse Resp BP Pulse Ox 07/26/20 09:34 87 145/70 H 98 07/26/20 08:38 36.1 C 96 18 154/86 H 97
== END 2020-07-26 09:41 | disposition home or self-care (01) ==
LOC: MW.ED 08:22
DX: J45.41 Moderate persistent asthma with (acute) exacerbation (principal); E66.9 Obesity, unspecified; Z68.35 Body mass index [BMI] 35.0-35.9, adult
CPT/HCPCS: 99284; A9270; J8540; J3535-GY

== ENCOUNTER 2020-08-01 05:47 | Emergency (ER) | payer SELFPAY ==
[2020-08-01] MEDS ORDERED: Albuterol/Ipratropium 4 GM Inhalation Spray INH STA (05:51)
[2020-08-01] MEDS ORDERED: Dexamethasone 4 MG Tab PO STA (05:52)
[2020-08-01] MEDS ORDERED: Albuterol HFA 18 Gm Inhaler INH STA ×2 (05:52→06:08)
[2020-08-01] MEDS ORDERED: Albuterol 8 GM Inhaler INH ONE (06:03)
--- NOTE | 2020-08-01 06:07 | EDM.PDOC ---
ED HPI GENERAL MEDICAL PROBLEM - General Chief Complaint: Respiratory Problem Stated Complaint: DIFFICULTY BREATHING Time Seen by Provider: 08/01/20 05:48 - History of Present Illness INITIAL COMMENTS - FREE TEXT/NARRATIVE: CHIEF COMPLAINT(S): Asthma HISTORY OF PRESENT ILLNESS: This is a 30-year-old man and with a past medical history of asthma who comes to the emergency department with a chief complaint of asthma. The patient states that since this evening after waking up he started experiencing some mild shortness of breath. He states that it feels similar to last time. He states that he used up all of the inhaler we gave him last time. He denies any fevers, chills, cough. He denies any chest pain. He states that he is continue to use the albuterol every 4 hours but has still not been able to obtain his normal prescription of Symbicort given insurance issues. He denies any Covid exposures or any other symptoms. REVIEW OF SYSTEMS: Constitutional: Denies fever, chills. Eyes: Denies eye pain Ears, Nose, Mouth, & Throat: Denies earache Cardiovascular: Denies chest pain Respiratory: Positive for shortness of breath and wheezing Gastrointestinal: Denies Nausea, vomiting, diarrhea, hematochezia. Genitourinary: Denies hematuria Skin:Denies a rash Neurological: Denies blurred vision Psychiatric: Denies depression PAST MEDICAL HISTORY: As per history of present illness and as reviewed below otherwise noncontributory. SURGICAL HISTORY: As per history of present illness and as reviewed below otherwise noncontributory. SOCIAL HISTORY: As per history of present illness and as reviewed below ot herwise noncontributory. FAMILY HISTORY: As per history of present illness and as reviewed below otherwise noncontributory. EXAMINATION OF ORGAN SYSTEMS/BODY AREAS: Constitutional: Blood pressure was 146/77, heart rate 81, respiratory rate 20 with an oxygen saturation 97% on room air. Temperature 36.1 General: Obese gentleman who does not appear to be in acute distress Psychiatric: Appropriate mood and affect. Eyes: No scleral icterus or conjunctival erythema ENMT: Moist mucous membranes. No pharyngeal erythema Cardiovascular: Regular, rate, and rhythm. No gallops, murmurs, or rubs. Bi lateral upper extremity pulses symmetric and intact. No peripheral edema. No JVD. Respiratory: Patient is speaking in full sentences. No increased work of breathing. There is mild bilateral expiratory wheezing. The wheezing is symmetric. I do not hear any crackles. Gastrointestinal: Soft, non-tender, non-distended. Normoactive bowel sounds Genitourinary: No suprapubic tenderness Musculoskeletal: Normal range of motion. Skin: No lesions or abrasions. Neurological: Alert, GCS 15 MEDICAL DECISION MAKING AND COURSE IN THE ED WITH INTERPRETATION/REVIEW OF DIAGNOSTIC STUDIES: This is a 30-year-old man with a past medical history of asthma whom I saw approximately 1 week ago who comes to the emergency department with mild acute asthma exacerbation. At this time we will provide the patient with albuterol and ipratropium and provide him with dexamethasone. Will obtain a chest x-ray given this is a repeat visit. Last week we were able to help obtain contact information to obtain insurance and a primary care physician. He states that he does have an appointment with a primary care physician and was able to apply for insurance however it is still being processed. The radiological images were viewed by myself along with reading the report from the radiologist. Chest x-ray does not reveal any acute cardiopulmonary process. On reevaluation, the patient reported improvement. At this time he had clear lung sounds bilaterally. I did discuss with him at this time that he should use albuterol as needed every 4-6 hours and Combivent every 4-6 hours if he is is uncomfortable as he was this evening. He is to keep his primary care physician appointment and hopefully his insurance kicks in so that he can afford his controlling inhalers. He is to return for any new or worsening symptoms. DISPOSITION: The patient was discharged home in stable condition. The patient will keep his pcp appointment CONDITION: Fair PROCEDURES: None FINAL IMPRESSION(S)/DIAGNOSES: 1. Acute asthma exacerbation - Related Data Allergies Allergy/AdvReac Type Severity Reaction Status Date / Time No Known Allergies Allergy Verified 08/01/20 05:54 Home Meds: Home Meds Albuterol Sulfate [Albuterol Sulfate Hfa] 2 puff INH ASDIRECTED 07/31/19 [History] Past Medical History - Past Health History Medical/Surgical History: Denies Medical/Surgical History HEENT History: Reports: None Cardiovascular History: Reports: None Respiratory History: Reports: Asthma Gastrointestinal History: Reports: None Genitourinary History: Reports: None Musculoskeletal History: Reports: None Neurological History: Reports: None Psychiatric History: Reports: None Endocrine/Metabolic History: Reports: Obesity/BMI 30+ 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 Hematologic History: Reports: None Immunologic History: Reports: None Oncologic (Cancer) History: Reports: None Dermatologic History: Reports: None - Infectious Disease History Infectious Disease History: Reports: Chicken Pox - Past Surgical History Head Surgeries/Procedures: Reports: None HEENT Surgical History: Reports: None Cardiovascular Surgical History: Reports: None Respiratory Surgical History: Reports: None GI Surgical History: Reports: None Male Surgical History: Reports: None Endocrine Surgical History: Reports: None Neurological Surgical History: Reports: None Musculoskeletal Surgical History: Reports: None Oncologic Surgical History: Reports: None Dermatological Surgical History: Reports: None Social & Family History - Family History Family Medical History: No Pertinent Family History - Caffeine Use Caffeine Use: Reports: Energy Drinks, None - Recreational Drug Use Recreational Drug Use: No ED ROS GENERAL - Review of Systems Review Of Systems: See Below ED EXAM, GENERAL - Physical Exam Exam: See Below Course - Vital Signs Last Recorded V/S: Last Vital Signs Temp 36.1 C 08/01/20 05:50 Pulse 81 08/01/20 05:50 Resp 20 08/01/20 05:50 BP 146/77 H 08/01/20 05:50 Pulse Ox 97 08/01/20 05:50 - Orders/Labs/Meds Orders: Active Orders 24 hr Category Date Time Status RT Post Treatment Assessment [RC] Click to Edit Care 08/01/20 05:51 Active RT Post Treatment Assessment [RC] Click to Edit Care 08/01/20 05:52 Active RT Post Treatment Assessment [RC] Click to Edit Care 08/01/20 06:09 Active RT Pre-Treatment Assessment [RC] Click to Edit Care 08/01/20 05:51 Active RT Pre-Treatment Assessment [RC] Click to Edit Care 08/01/20 05:52 Active RT Pre-Treatment Assessment [RC] Click to Edit Care 08/01/20 06:09 Active Meds: Medications Discontinued Medications Generic Name Dose Route Start Last Admin Trade Name Freq PRN Reason Stop Dose Admin Albuterol 1 gm 08/01/20 05:52 08/01/20 06:10 Ventolin Hfa INH 08/01/20 05:53 Not Given ONETIME STA Albuterol Confirm 08/01/20 06:03 08/01/20 06:10 Ventolin Hfa Administered 08/01/20 06:04 Not Given Dose 8 gm INH .STK-MED ONE Albuterol 8 gm 08/01/20 06:08 08/01/20 06:12 Ventolin Hfa INH 08/01/20 06:09 2 puff NOW STA Administration Albuterol/Ipratropium 1 gm 08/01/20 05:51 08/01/20 06:05 Combivent Respimat INH 08/01/20 05:52 1 inh ONETIME STA Administration Dexamethasone 10 mg 08/01/20 05:52 08/01/20 06:05 Dexamethasone PO 08/01/20 05:53 10 mg ONETIME STA Administration Dexamethasone 10 mg 08/01/20 06:48 Dexamethasone PO 08/01/20 06:49 ONETIME ONE Departure - Departure Time of Disposition: 06:50 Disposition: Home, Self-Care 01 Condition: Fair Clinical Impression: Asthma exacerbation Qualifiers: Asthma severity: mild Asthma persistence: unspecified Qualified Code(s): J45.901 - Unspecified asthma with (acute) exacerbation - Discharge Information *PRESCRIPTION DRUG MONITORING PROGRAM REVIEWED*: No *COPY OF PRESCRIPTION DRUG MONITORING REPORT IN PATIENT ZECHARIAH: No Instructions: Form - Asthma Action Plan, Adult, Asthma, Adult, [id number] Referrals: PCP,None [Primary Care Provider] - Forms: ED Department Discharge Additional Instructions: Your evaluated today on an emergent basis. At this time I recommend keeping your primary care physician appointment. I also recommend that she use albuterol as needed every 4-6 hours for wheezing. We did provide you with a Combivent inhaler. You can use this every 4-6 hours also however only use this if it is severe like you were feeling today. We also provide you with a 10 mg tablet of dexamethasone. Do not take this unless you have been improved in 72 hours. Return for any new or worsening symptoms [facility] [address] [place] [id number] [facility] [address] [place] [id number] The patient is informed of any results of their evaluation and diagnostic workup and all questions are answered. They are given discharge instructions and return precautions. The patient is stable for discharge. The patient states they understand and agree with the plan and that they will return if their symptoms get worse or if they have any new concerns. The following information is given to patients seen in the emergency department who are being discharged to home. This information is to outline your options fo r follow-up care. We provide all patients seen in our emergency department with a follow-up referral. The need for follow-up, as well as the timing and circumstances, are variable depending upon the specifics of your emergency department visit. If you don't have a primary care physician on staff, we will provide you with a referral. We always advise you to contact your personal physician following an emergency department visit to inform them of the circumstance of the visit and for follow-up with them and/or the need for any referrals to a consulting specialist. The emergency department will also refer you to a specialist when appropriate. This referral assures that you have the opportunity for follow-up care with a specialist. All of these measure are taken in an effort to provide you with optimal care, which includes your follow-up. Under all circumstances we always encourage you to contact your private physician who remains a resource for coordinating your care. When calling for follow-up care, please make the office aware that this follow-up is from your recent emergency room visit. If for any reason you are refused follow-up, please contact the [facility] Emergency Department at and asked to speak to the emergency department charge nurse. Sepsis Event Note (ED) - Evaluation Sepsis Screening Result: No Definite Risk - Focused Exam Vital Signs: Vital Signs Temp Pulse Resp BP Pulse Ox 08/01/20 05:50 36.1 C 81 20 146/77 H 97 - My Orders Last 24 Hours: My Active Orders 08/01/20 05:51 RT Post Treatment Assessment [RC] Click to Edit RT Pre-Treatment Assessment [RC] Click to Edit 08/01/20 05:52 RT Post Treatment Assessment [RC] Click to Edit RT Pre-Treatment Assessment [RC] Click to Edit 08/01/20 06:09 RT Post Treatment Assessment [RC] Click to Edit RT Pre-Treatment Assessment [RC] Click to Edit - Assessment/Plan Last 24 Hours: My Active Orders 08/01/20 05:51 RT Post Treatment Assessment [RC] Click to Edit RT Pre-Treatment Assessment [RC] Click to Edit 08/01/20 05:52 RT Post Treatment Assessment [RC] Click to Edit RT Pre-Treatment Assessment [RC] Click to Edit 08/01/20 06:09 RT Post Treatment Assessment [RC] Click to Edit RT Pre-Treatment Assessment [RC] Click to Edit
--- NOTE | 2020-08-01 06:43 | CR ---
INDICATION: Shortness of breath COMPARISON: Two view chest dated 07/31/2019 TECHNIQUE: Portable chest performed at 6:15 a.m. FINDINGS: The lungs are clear. There is no evidence of pneumothorax. The heart, mediastinum and pulmonary vessels are of normal size. There is no evidence of pleural fluid. IMPRESSION: Negative chest. Dictated by Chi Solorio MD @ Aug 01 2020 6:38AM Signed by Dr. Chi Solorio @ Aug 01 2020 6:41AM
[2020-08-01] MEDS ORDERED: Dexamethasone 4 MG Tab PO ONE (06:48)
== END 2020-08-01 07:10 | disposition home or self-care (01) ==
LOC: MW.ED 05:47
DX: J45.901 Unspecified asthma with (acute) exacerbation (principal); E66.9 Obesity, unspecified; Z68.41 Body mass index [BMI] 40.0-44.9, adult
CPT/HCPCS: 71045; 99285; A9270; J8540; 99283; J3535-GY

== ENCOUNTER 2020-08-20 10:39 | Emergency (ER) | payer SELFPAY ==
[2020-08-20] MEDS ORDERED: Albuterol/Ipratropium 3.0-0.5 MG/3 ML Neb Soln NEB ONE (10:40)
[2020-08-20] MEDS ORDERED: Albuterol HFA 18 Gm Inhaler INH SCH (10:45)
--- NOTE | 2020-08-20 10:50 | EDM.PDOC ---
ED HPI GENERAL MEDICAL PROBLEM - General Stated Complaint: EMS ASTHMA Time Seen by Provider: 08/20/20 10:40 Source of Information: Reports: Patient History Limitations: Reports: No Limitations - History of Present Illness INITIAL COMMENTS - FREE TEXT/NARRATIVE: 30M PMHx asthma, medication non-compliance 2/2 insurance issues presents for apparent asthma attack. Patient's asthma is typically well controlled, but he does not have inhaler or NEB at home. He did require intubation once for asthma attack. He noted SOB this morning and tried to wait a couple of hours but eventually called EMS. He got an albuterol MDI and methylprednisolone 125mg en route and feels much, much better. Denies CP but did note chest tightness during the asthma attack. He currently notes minimal SOB. Denies cough or recent fever, sore throat. Denies h/o COVID infection. - Related Data Allergies Allergy/AdvReac Type Severity Reaction Status Date / Time No Known Allergies Allergy Verified 08/01/20 05:54 Home Meds: Home Meds Albuterol Sulfate [Albuterol Sulfate Hfa] 2 puff INH ASDIRECTED 07/31/19 [History] Albuterol Sulfate [Proair Hfa] 8.5 gm IH Q4H PRN #1 [email or web address] 08/20/20 [Rx] predniSONE 40 mg PO WITHBREAKFAST 5 Days #10 tab 08/20/20 [Rx] Past Medical History - Past Health History Medical/Surgical History: Denies Medical/Surgical History HEENT History: Reports: None Cardiovascular History: Reports: None Respiratory History: Reports: Asthma Gastrointestinal History: Reports: None Genitourinary History: Reports: None Musculoskeletal History: Reports: None Neurological History: Reports: None Psychiatric History: Reports: None Endocrine/Metabolic History: Reports: Obesity/BMI 30+ 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 Hematologic History: Reports: None Immunologic History: Reports: None Oncologic (Cancer) History: Reports: None Dermatologic History: Reports: None - Infectious Disease History Infectious Disease History: Reports: Chicken Pox - Past Surgical History Head Surgeries/Procedures: Reports: None HEENT Surgical History: Reports: None Cardiovascular Surgical History: Reports: None Respiratory Surgical History: Reports: None GI Surgical History: Reports: None Male Surgical History: Reports: None Endocrine Surgical History: Reports: None Neurological Surgical History: Reports: None Musculoskeletal Surgical History: Reports: None Oncologic Surgical History: Reports: None Dermatological Surgical History: Reports: None Social & Family History - Family History Family Medical History: No Pertinent Family History - Caffeine Use Caffeine Use: Reports: Energy Drinks, None ED ROS GENERAL - Review of Systems Review Of Systems: Comprehensive ROS is negative, except as noted in HPI. ED EXAM, GENERAL - Physical Exam Exam: See Below Exam Limited By: No Limitations General Appearance: Alert, WD/WN, No Apparent Distress Throat/Mouth: Normal Voice, No Airway Compromise, Other (speaks in full sentences) Head: Atraumatic, Other Neck: Normal Inspection, Other (no stridor) Respiratory/Chest: No Respiratory Distress, No Accessory Muscle Use, Wheezing Cardiovascular: Normal Peripheral Pulses, Regular Rate, Rhythm, No Edema Back Exam: Normal Inspection Neurological: Alert, Normal Gait Psychiatric: Normal Affect, Normal Mood Skin Exam: Warm, Dry, Intact, Normal Color Course - Orders/Labs/Meds Orders: Active Orders 24 hr Category Date Time Status RT Aerosol Therapy [RC] ASDIRECTED Care 08/20/20 10:41 Ordered RT Post Treatment Assessment [RC] Click to Edit Care 08/20/20 10:44 Ordered RT Pre-Treatment Assessment [RC] Click to Edit Care 08/20/20 10:44 Ordered Albuterol [Ventolin HFA] Med 08/20/20 10:45 Ordered 1 gm INH Q2H Meds: Medications Discontinued Medications Generic Name Dose Route Start Last Admin Trade Name Freq PRN Reason Stop Dose Admin Albuterol/Ipratropium 3 ml 08/20/20 10:40 Duoneb 3.0-0.5 Mg/3 Ml NEB 08/20/20 10:41 ONETIME ONE - Re-Assessments/Exams Free Text/Narrative Re-Assessment/Exam: 08/20/20 10:47 Will give 1x duoneb treatment in ED for mild expiratory wheezing. Will give albuterol inhaler to go home with. 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 Will obs x30-min after duoneb and d/c home. Departure - Departure Time of Disposition: 10:47 Disposition: Home, Self-Care 01 Condition: Good Clinical Impression: Acute asthma exacerbation Qualifiers: Asthma severity: unspecified severity Asthma persistence: unspecified Qualified Code(s): J45.901 - Unspecified asthma with (acute) exacerbation - Discharge Information Prescriptions: predniSONE 40 mg PO WITHBREAKFAST 5 Days #10 tab Additional Instructions: It seems like you had an asthma exacerbation. We gave you an inhaler to try and use if you feel your wheezing coming back. You got a shot of steroids, but you'll need to continue steroids x5 days which were sent to [facility] in [facility]. They assured me it will cost around $20 for a 5 day course. I also sent a prescription for an albuterol inhaler with 3 refills to [facility]. You don't have to fill this now since we gave you one to go home with, but it's available as an option to bean picker machine operator so you can have an extra or if you run out of the one we gave you. Asthma is unfortunately a chronic disease that sometimes gets better and sometimes gets worse with age. Ideally, you should have a primary care doctor to help manage your asthma symptoms. That being said, we are always available for you in the Emergency Department 26/01 if you feel you need emergent help or if you're unable to see a primary care physician for any reasons. Thank you so much for allowing me to participate in your medical care today, and stay safe and healthy! The following information is given to patients seen in the emergency department who are being discharged to home. This information is to outline your options for follow-up care. We provide all patients seen in our emergency department with a follow-up referral. The need for follow-up, as well as the timing and circumstances, are variable depending upon the specifics of your emergency department visit. If you don't have a primary care physician on staff, we will provide you with a referral. We always advise you to contact your personal physician following an emergency department visit to inform them of the circumstance of the visit and for follow-up with them and/or the need for any referrals to a consulting specialist. The emergency department will also refer you to a specialist when appropriate. This referral assures that you have the opportunity for follow-up care with a specialist. All of these measure are taken in an effort to provide you with optimal care, which includes your follow-up. Under all circumstances we always encourage you to contact your private physician who remains a resource for coordinating your care. When calling for follow-up care, please make the office aware that this follow-up is from your recent emergency room visit. If for any reason you are refused follow-up, please contact the [facility] Emergency Department at and asked to speak to the emergency department charge nurse. Please follow up with your primary care physician. If you do not have a primary care physician, see below: [facility] [address] [place] [id number] [address] [facility] [address] [place] [address] - My Orders Last 24 Hours: My Active Orders 08/20/20 10:41 RT Aerosol Therapy [RC] ASDIRECTED 08/20/20 10:44 RT Post Treatment Assessment [RC] Click to Edit RT Pre-Treatment Assessment [RC] Click to Edit 08/20/20 10:45 Albuterol [Ventolin HFA] 1 gm INH Q2H - Assessment/Plan Last 24 Hours: My Active Orders 08/20/20 10:41 RT Aerosol Therapy [RC] ASDIRECTED 08/20/20 10:44 RT Post Treatment Assessment [RC] Click to Edit RT Pre-Treatment Assessment [RC] Click to Edit 08/20/20 10:45 Albuterol [Ventolin HFA] 1 gm INH Q2H
[2020-08-20] MEDS ORDERED: Albuterol 8 GM Inhaler INH ONE (10:55)
== END 2020-08-20 11:31 | disposition home or self-care (01) ==
LOC: MW.ED 10:39
DX: J45.901 Unspecified asthma with (acute) exacerbation (principal); E66.9 Obesity, unspecified; Z68.36 Body mass index [BMI] 36.0-36.9, adult
CPT/HCPCS: 99285; A9270; 99283; J3535-GY; J7620-GY

== ENCOUNTER 2020-08-27 00:19 | Emergency (ER) | payer SELFPAY ==
[2020-08-27] MEDS ORDERED: Albuterol 8 GM Inhaler INH ONE (00:41)
--- NOTE | 2020-08-27 00:41 | EDM.PDOC ---
ED HPI GENERAL MEDICAL PROBLEM - General Chief Complaint: Respiratory Problem Stated Complaint: ASTHMA Time Seen by Provider: 08/27/20 00:33 - History of Present Illness INITIAL COMMENTS - FREE TEXT/NARRATIVE: HISTORY AND PHYSICAL: History of present illness: This is a 30-year-old gentleman with a history significant for asthma presents ER today secondary shortness of breath and wheezing. Patient reports he was able to find his inhaler today and believes he lost it today. Patient reports that if he had his inhaler he feels that he would not have needed to come to the ER but he was unable to locate it. Patient denies any recent fevers, shakes, chills, nausea, vomiting, diarrhea, dysuria, frequency, urgency, chest pain. Patient has no history of hypertension, diabetes, liver, kidney problems. Patient has any alcohol or drugs. Review of systems: As per history of present illness and below otherwise all systems reviewed and negative. Past medical history: As per history of present illness and as reviewed below otherwise noncontributory. Surgical history: As per history of present illness and as reviewed below otherwise noncontributory. Social history: No reported history of drug or alcohol abuse. Family history: As per history of present illness and as reviewed below otherwise noncontributory. Physical exam: This patient was seen and evaluated during the 2019 SARS-CoV-2 novel coronavirus pandemic period. Community viral transmission is ongoing at time of this encounter and the emergency department is operating under pandemic response procedures. Constitutional: Patient is oriented to person, place, and time. Appears well- developed and well-nourished. No distress. HEENT: Moist mucous membranes Head: Normocephalic and atraumatic Eyes: Right eye exhibits no discharge. Left eye exhibits no discharge. No scleral icterus Neck: Normal range of motion. No tracheal deviation present. Cardiovascular: Normal rate and regular rhythm. Pulmonary: Effort normal, no respiratory distress. Mild scant end expiratory wheezing. Patient speaking in full sentences in no acute respiratory distress. Patient is not appear tachypneic. Patient is resting comfortably. Abdominal: No distention Musculoskeletal: Normal range of motion Neurologic: Alert and oriented to person, place and time. Skin: [place], warm and dry. Psychiatric: Normal mood and affect. Behavior is normal. Judgment and thought content normal. Nursing note and vital signs have been reviewed Diagnostics: [] Therapeutics: [] Assessment and plan: 30-year-old gentleman with history of asthma presents ER today secondary shortness of breath. Patient reports he was unable to locate his MDI today. Patient is requesting that we give him 2 puffs of an albuterol MDI and does not feel that he needs a full nebulized treatment. Patient be given an MDI and will be discharged home with it. Patient also be given a prescription for albuterol MDI so that he should have one on standby. Patient feels improved and will be discharged home in stable condition. Reassessment at the time of disposition demonstrates that the patient is in no acute distress. The patient has remained stable throughout the entire ED visit and is without objective evidence for acute process requiring urgent intervention or hospitalization. The patient is stable for discharge, counseling is provided as documented above, discussed symptomatic treatment and specific conditions for return. I have spoken with the patient/caregiver and discussed todays findings, in addition to providing specific details for the plan of care. Questions are answered and there is agreement with the plan. Definitive disposition and diagnosis as appropriate pending reevaluation and review of above. chest Pain Score (Numeric/FACES): 3 - Related Data Allergies Allergy/AdvReac Type Severity Reaction Status Date / Time No Known Allergies Allergy Verified 08/27/20 00:27 Home Meds: Home Meds Albuterol Sulfate [Albuterol Sulfate HFA] 8.5 gm INH Q6H PRN #1 inhaler 08/27/20 [Rx] Past Medical History - Past Health History Medical/Surgical History: Denies Medical/Surgical History HEENT History: Reports: None Cardiovascular History: Reports: None Respiratory History: Reports: Asthma Gastrointestinal History: Reports: None Genitourinary History: Reports: None Musculoskeletal History: Reports: None Neurological History: Reports: None Psychiatric History: Reports: None Endocrine/Metabolic History: Reports: Obesity/BMI 30+ 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 Pump Model and Pre School Manager: None Hematologic History: Reports: None Immunologic History: Reports: None Oncologic (Cancer) History: Reports: None Dermatologic History: Reports: None - Infectious Disease History Infectious Disease History: Reports: Chicken Pox - Past Surgical History Head Surgeries/Procedures: Reports: None HEENT Surgical History: Reports: None Cardiovascular Surgical History: Reports: None Respiratory Surgical History: Reports: None GI Surgical History: Reports: None Male Surgical History: Reports: None Endocrine Surgical History: Reports: None Neurological Surgical History: Reports: None Musculoskeletal Surgical History: Reports: None Oncologic Surgical History: Reports: None Dermatological Surgical History: Reports: None Social & Family History - Family History Family Medical History: No Pertinent Family History - Tobacco Use Tobacco Use Status *Q: Former Tobacco User Used Tobacco, but Quit: Yes Month/Year Tobacco Last Used: 2017 - Caffeine Use Caffeine Use: Reports: None - Recreational Drug Use Recreational Drug Use: No ED ROS GENERAL - Review of Systems Review Of Systems: See Below ED EXAM, GENERAL - Physical Exam Exam: See Below Course - Vital Signs Last Recorded V/S: Last Vital Signs Temp 96.5 F L 08/27/20 00:28 Pulse 94 08/27/20 00:28 Resp 24 H 08/27/20 00:28 BP 145/76 H 08/27/20 00:28 Pulse Ox 96 08/27/20 00:28 - Orders/Labs/Meds Orders: Active Orders 24 hr Category Date Time Status RT Post Treatment Assessment [RC] Click to Edit Care 08/27/20 00:36 Ordered RT Pre-Treatment Assessment [RC] Click to Edit Care 08/27/20 00:36 Ordered Albuterol [Ventolin HFA] Med 08/27/20 06:00 Ordered 2 gm INH QID Departure - Departure Time of Disposition: 00:39 Disposition: Home, Self-Care 01 Condition: Good Clinical Impression: Asthma exacerbation Qualifiers: Asthma severity: mild Asthma persistence: unspecified Qualified Code(s): J45.901 - Unspecified asthma with (acute) exacerbation - Discharge Information Instructions: Asthma, Adult Referrals: PCP,None [Primary Care Provider] - Additional Instructions: You were seen and evaluated the ER today secondary to shortness of breath because of your asthma. You have been given 2 puffs of an albuterol inhaler here in the ED and you will be discharged home with it. I will also write you a prescription for an albuterol MDI to your pharmacy to have on standby in case she should need it. Please return to the ER if your breathing should worsen or if you have any new or concerning symptoms. Otherwise, please make an appointment to follow-up with your family doctor within the week. The following information is given to patients seen in the emergency department who are being discharged to home. This information is to outline your options for follow-up care. We provide all patients seen in our emergency department with a follow-up referral. The need for follow-up, as well as the timing and circumstances, are variable depending upon the specifics of your emergency department visit. If you don't have a primary care physician on staff, we will provide you with a referral. We always advise you to contact your personal physician following an emergency department visit to inform them of the circumstance of the visit and for follow-up with them and/or the need for any referrals to a consulting specialist. The emergency department will also refer you to a specialist when appropriate. This referral assures that you have the opportunity for follow-up care with a specialist. All of these measure are taken in an effort to provide you with optimal care, which includes your follow-up. Under all circumstances we always encourage you to contact your private physician who remains a resource for coordinating your care. When calling for follow-up care, please make the office aware that this follow-up is from your recent emergency room visit. If for any reason you are refused follow-up, please contact the [facility] Emergency Department at and asked to speak to the emergency department charge nurse. [facility] - Primary Care [address] [place] [address] [place] [address] Sepsis Event Note (ED) - Evaluation Sepsis Screening Result: No Definite Risk - Focused Exam Vital Signs: Vital Signs Temp Pulse Resp BP Pulse Ox 08/27/20 00:28 96.5 F L 94 24 H 145/76 H 96 - My Orders Last 24 Hours: My Active Orders 08/27/20 00:36 RT Post Treatment Assessment [RC] Click to Edit RT Pre-Treatment Assessment [RC] Click to Edit 08/27/20 06:00 Albuterol [Ventolin HFA] 2 gm INH QID - Assessment/Plan Last 24 Hours: My Active Orders 08/27/20 00:36 RT Post Treatment Assessment [RC] Click to Edit RT Pre-Treatment Assessment [RC] Click to Edit 08/27/20 06:00 Albuterol [Ventolin HFA] 2 gm INH QID
[2020-08-27] MEDS ORDERED: Albuterol HFA 18 Gm Inhaler INH ONE (00:46)
[2020-08-27] MEDS ORDERED: Albuterol HFA 18 Gm Inhaler INH SCH (06:00)
== END 2020-08-27 00:57 | disposition home or self-care (01) ==
LOC: MW.ED 00:19
DX: J45.901 Unspecified asthma with (acute) exacerbation (principal); E66.9 Obesity, unspecified; Z68.35 Body mass index [BMI] 35.0-35.9, adult; Z87.891 Personal history of nicotine dependence; Z79.899 Other long term (current) drug therapy
CPT/HCPCS: 99284; A9270; 99283; J3535-GY

== ENCOUNTER 2020-09-10 13:40 | Emergency (ER) | payer SELFPAY ==
[2020-09-10] MEDS ORDERED: Albuterol/Ipratropium 3.0-0.5 MG/3 ML Neb Soln NEB ONE (14:05)
[2020-09-10] MEDS ORDERED: methylPREDNISolone Sodium Succinate 125 MG/2 ML SDV IVPUSH ONE (14:06)
--- NOTE | 2020-09-10 14:10 | EDM.PDOC ---
ED [facility] GENERAL MEDICAL PROBLEM - General Chief Complaint: Respiratory Problem Stated Complaint: ASTHMA ATTACK Time Seen by Provider: 09/10/20 13:49 Source of Information: Reports: Patient History Limitations: Reports: No Limitations - History of Present Illness INITIAL COMMENTS - FREE TEXT/NARRATIVE: 30-year-old male with history of asthma was woken up today with shortness of b reath and chest tightness. He denies fever, chills, chest pain, cough, body aches. He does smoke cigars intermittently. ROS: A 10-point review of systems, other than pertinent positives and negatives as stated per HPI, is otherwise negative Past medical history: No additional pertinent history Past Surgical history: No additional pertinent history Social history: No additional pertinent history Family history: No additional pertinent history PHYSICAL EXAM General: AOx4, GCS = 15, No distress HEENT: dry mucous membrane Neck: supple, no meningismus, no Kernig or Brudzinski Cardiac: S1S2 RRR Respiratory: Diminished breath sounds bilaterally with mild expiratory wheezing. Speaking in full sentences, no retractions. Abdomen: Soft, nontender, no rebound or guarding, nondistended, no pulsatile mass. Back: nontender Musculoskeletal: NVI distally, no deformity Neuro: No focal deficits, CN 2 - 12 WNL. chest Pain Score (Numeric/FACES): 6 - Related Data Allergies Allergy/AdvReac Type Severity Reaction Status Date / Time No Known Allergies Allergy Verified 09/10/20 13:47 Home Meds: Home Meds Albuterol Sulfate [Albuterol Sulfate HFA] 8.5 gm INH Q6H PRN #1 inhaler 08/27/20 [Rx] predniSONE [Prednisone] 50 mg PO DAILY #5 tablet 09/10/20 [Rx] Past Medical History - Past Health History Medical/Surgical History: Denies Medical/Surgical History HEENT History: Reports: None Cardiovascular History: Reports: None Respiratory History: Reports: Asthma Gastrointestinal History: Reports: None Genitourinary History: Reports: None Musculoskeletal History: Reports: None Neurological History: Reports: None Psychiatric History: Reports: None Endocrine/Metabolic History: Reports: Obesity/BMI 30+ Insulin Pump Model and Membership Sales Representative: None Hematologic History: Reports: None Immunologic History: Reports: None Oncologic (Cancer) History: Reports: None Dermatologic History: Reports: None - Infectious Disease History Infectious Disease History: Reports: Chicken Pox - Past Surgical History Head Surgeries/Procedures: Reports: None HEENT Surgical History: Reports: None Cardiovascular Surgical History: Reports: None Respiratory Surgical History: Reports: None GI Surgical History: Reports: None Male Surgical History: Reports: None Endocrine Surgical History: Reports: None Neurological Surgical History: Reports: None Musculoskeletal Surgical History: Reports: None Oncologic Surgical History: Reports: None Dermatological Surgical History: Reports: None Social & Family History - Family History Family Medical History: No Pertinent Family History - Caffeine Use Caffeine Use: Reports: None ED ROS GENERAL - Review of Systems Review Of Systems: See Below (see dictation) ED EXAM, GENERAL - Physical Exam Exam: See Below (see dictation) #1 Interpretation EKG Interpretation Comments: Heart rate = 87 bpm, normal sinus rhythm, normal QRS interval, no STEMI. EKG and rhythm strip interpreted by me at 1341 Course - Vital Signs Last Recorded V/S: Last Vital Signs Temp 98 F 09/10/20 15:26 Pulse 73 09/10/20 14:43 Resp 16 09/10/20 14:43 BP 130/76 09/10/20 14:43 Pulse Ox 96 09/10/20 14:43 - Orders/Labs/Meds Meds: Medications Discontinued Medications Generic Name Dose Route Start Last Admin Trade Name Luis M PRN Reason Stop Dose Admin Albuterol 0 gm 09/10/20 14:57 09/10/20 15:01 Albuterol 8 Gm Inhaler INH 2 inhalation Q4H PRN Administration SHORTNESS OF BREATH Albuterol/Ipratropium 3 ml 09/10/20 14:05 09/10/20 14:15 Albuterol/Ipratropium 3.0-0.5 Mg/3 Ml Neb Soln NEB 09/10/20 14:06 3 ml ONETIME ONE Administration Methylprednisolone Sodium Succinate 125 mg 09/10/20 14:06 09/10/20 14:15 Methylprednisolone Sodium Succinate 125 Mg/2 Ml Sdv IVPUSH 09/10/20 14:07 125 mg ONETIME ONE Administration - Re-Assessments/Exams Free Text/Narrative Re-Assessment/Exam: 09/10/20 14:09 After breathing treatment and IV Solu-Medrol in the ER, he feels improved and is currently stable for discharge. I performed a repeat exam and is no longer wheezing. Patient exhibits normal vital signs. I advised the patient to return to the ER for reevaluation if symptoms worsened, including fever, worsening pain, or any other worrisome symptoms. I instructed the patient to follow up with their PCP within 2-3 days. MEDICAL DECISION MAKING: I reviewed the patients past medical records, lab and radiographic findings. I discussed the case with the patient. My differential diagnosis included: Asthma exacerbation, bronchitis, pneumonia. Chest x-ray was unremarkable for infectious etiology. Departure - Departure Time of Disposition: 15:30 Disposition: Eloped 07 Clinical Impression: Asthma exacerbation - Discharge Information *PRESCRIPTION DRUG MONITORING PROGRAM REVIEWED*: Not Applicable *COPY OF PRESCRIPTION DRUG MONITORING REPORT IN PATIENT ZECHARIAH: Not Applicable Prescriptions: predniSONE [Prednisone] 50 mg PO DAILY #5 tablet Instructions: Steps to Quit Smoking, [id number], Shortness of Breath, Adult, [id number], Asthma, Adult, [id number] Referrals: PCP,Haseeb [Primary Care Provider] - Forms: ED Department Discharge Additional Instructions: The need for follow-up, as well as the timing and circumstances, are variable depending upon the specifics of your emergency department visit. If you don't have a primary care physician on staff, we will provide you with a referral. We always advise you to contact your personal physician following an emergency department visit to inform them of the circumstance of the visit and for follow-up with them and/or the need for any referrals to a consulting specialist. The emergency department will also refer you to a specialist when appropriate. This referral assures that you have the opportunity for follow-up care with a specialist. All of these measure are taken in an effort to provide you with optimal care, which includes your follow-up. Under all circumstances we always encourage you to contact your private physician who remains a resource for coordinating your care. When calling for follow-up care, please make the office aware that this follow-up is from your recent emergency room visit. If for any reason you are refused follow-up, please contact the [facility] Emergency Department at and asked to speak to the emergency department charge nurse. If you do not have a primary care doctor, please follow up with the clinics below within 3-5 days. [facility] - Primary Care [address] [place] [address] [id number] [address] [address] Sepsis Event Note (ED) - Evaluation Sepsis Screening Result: No Definite Risk
--- NOTE | 2020-09-10 14:43 | CR ---
INDICATION: Chest pain. COMPARISON: Chest radiograph July 31, 2019 and August 01, 2020. TECHNIQUE: Portable AP chest. FINDINGS: Normal size cardiac silhouette. Clear lung parekh with no evidence of acute pneumonic infiltrates or CHF. No pneumothorax or pleural effusion. No interval change. IMPRESSION: Negative chest. Dictated by Ferny Mahajan MD @ Sep 10 2020 2:40PM Signed by Dr. Ferny Mahajan @ Sep 10 2020 2:41PM
[2020-09-10] MEDS ORDERED: Albuterol 8 GM Inhaler INH PRN (14:57)
== END 2020-09-10 15:38 | disposition left against medical advice (07) ==
LOC: MW.ED 13:40
DX: J45.901 Unspecified asthma with (acute) exacerbation (principal); E66.9 Obesity, unspecified; Z68.33 Body mass index [BMI] 33.0-33.9, adult
CPT/HCPCS: 71045; 93005; 94640; 96374; 99285; A9270; J2930; 93010; 99283; J7620-GY

== ENCOUNTER 2020-10-31 08:53 | Emergency (ER) | payer SELFPAY ==
[2020-10-31] MEDS ORDERED: Albuterol 6.7 GM Inhaler INH ONE (09:23)
[2020-10-31] MEDS ORDERED: Albuterol 8 GM Inhaler INH ONE (09:25)
--- NOTE | 2020-10-31 09:25 | EDM.PDOC ---
ED HPI GENERAL MEDICAL PROBLEM - General Chief Complaint: Respiratory Problem Stated Complaint: asthma Time Seen by Provider: 10/31/20 08:59 Source of Information: Reports: Patient History Limitations: Reports: No Limitations - History of Present Illness INITIAL COMMENTS - FREE TEXT/NARRATIVE: Patient is a 30-year-old male who presents today for wheezing and tightness of his chest. Patient has history of asthma and states that he ran out of his inhaler this morning. Patient's been seen in ED multiple times for running out of his inhaler and requires refills in the ED. Patient has no cough nausea vomiting fevers or chills. Patient is satting 90% on room air. - Related Data Allergies Allergy/AdvReac Type Severity Reaction Status Date / Time No Known Allergies Allergy Verified 10/31/20 08:59 Home Meds: Home Meds Albuterol Sulfate [Albuterol Sulfate HFA] 8.5 gm INH Q6H PRN #1 inhaler 08/27/20 [Rx] Past Medical History - Past Health History Medical/Surgical History: Denies Medical/Surgical History HEENT History: Reports: None Cardiovascular History: Reports: None Respiratory History: Reports: Asthma Gastrointestinal History: Reports: None Genitourinary History: Reports: None Musculoskeletal History: Reports: None Neurological History: Reports: None Psychiatric History: Reports: None Endocrine/Metabolic History: Reports: Obesity/BMI 30+ Insulin Pump Model and Film Archivist: None Hematologic History: Reports: None Immunologic History: Reports: None Oncologic (Cancer) History: Reports: None Dermatologic History: Reports: None - Infectious Disease History Infectious Disease History: Reports: Chicken Pox - Past Surgical History Head Surgeries/Procedures: Reports: None HEENT Surgical History: Reports: None Cardiovascular Surgical History: Reports: None Respiratory Surgical History: Reports: None GI Surgical History: Reports: None Male Surgical History: Reports: None Endocrine Surgical History: Reports: None Neurological Surgical History: Reports: None Musculoskeletal Surgical History: Reports: None Oncologic Surgical History: Reports: None Dermatological Surgical History: Reports: None Social & Family History - Family History Family Medical History: No Pertinent Family History - Tobacco Use Tobacco Use Status *Q: Never Tobacco User - Caffeine Use Caffeine Use: Reports: None - Recreational Drug Use Recreational Drug Use: No ED ROS GENERAL - Review of Systems Review Of Systems: See Below Constitutional: Reports: No Symptoms HEENT: Reports: No Symptoms Respiratory: Reports: Wheezing Cardiovascular: Reports: No Symptoms Endocrine: Reports: No Symptoms GI/Abdominal: Reports: No Symptoms : Reports: No Symptoms Musculoskeletal: Reports: No Symptoms Skin: Reports: No Symptoms Neurological: Reports: No Symptoms Psychiatric: Reports: No Symptoms Hematologic/Lymphatic: Reports: No Symptoms Immunologic: Reports: No Symptoms ED EXAM, GENERAL - Physical Exam Exam: See Below Exam Limited By: No Limitations General Appearance: Alert, WD/WN Respiratory/Chest: No Respiratory Distress, Lungs Clear, Normal Breath Sounds Cardiovascular: Normal Peripheral Pulses, Regular Rate, Rhythm GI/Abdominal: Normal Bowel Sounds, Soft, Non-Tender Extremities: Normal Inspection Neurological: Alert, Oriented Course - Vital Signs Last Recorded V/S: Last Vital Signs Temp 97.6 F 10/31/20 08:59 Pulse 74 10/31/20 08:59 Resp 17 10/31/20 08:59 BP 133/81 10/31/20 08:59 Pulse Ox 98 10/31/20 08:59 Departure - Departure Time of Disposition: 09:27 Disposition: Home, Self-Care 01 Condition: Good Clinical Impression: Asthma Qualifiers: Asthma severity: unspecified severity Asthma persistence: unspecified Asthma complication type: unspecified Qualified Code(s): J45.909 - Unspecified asthma, uncomplicated - Discharge Information *PRESCRIPTION DRUG MONITORING PROGRAM REVIEWED*: Not Applicable *COPY OF PRESCRIPTION DRUG MONITORING REPORT IN PATIENT ZECHARIAH: Not Applicable Instructions: Asthma, Adult Referrals: PCP,None [Primary Care Provider] - Additional Instructions: The following information is given to patients seen in the emergency department who are being discharged to home. This information is to outline your options for follow-up care. We provide all patients seen in our emergency department with a follow-up referral. The need for follow-up, as well as the timing and circumstances, are variable depending upon the specifics of your emergency department visit. If you don't have a primary care physician on staff, we will provide you with a referral. We always advise you to contact your personal physician following an emergency department visit to inform them of the circumstance of the visit and for follow-up with them and/or the need for any referrals to a consulting specialist. The emergency department will also refer you to a specialist when appropriate. This referral assures that you have the opportunity for follow-up care with a specialist. All of these measure are taken in an effort to provide you with optimal care, which includes your follow-up. Under all circumstances we always encourage you to contact your private physician who remains a resource for coordinating your care. When calling for follow-up care, please make the office aware that this follow-up is from your recent emergency room visit. If for any reason you are refused follow-up, please contact the [facility] Emergency Department at and asked to speak to the emergency department charge nurse. Please follow up with your primary care physician. If you do not have a primary care physician, see below: [facility] Primary [facility] [address] [place] [id number] [facility] [address] [place] [address] You were seen today for wheezing. We gave you an inhaler today that you can take home. Please try to follow-up with your primary care physician if you have any other concerning signs or symptoms please return to the ED. Sepsis Event Note (ED) - Evaluation Sepsis Screening Result: No Definite Risk - Focused Exam Vital Signs: Vital Signs Temp Pulse Resp BP Pulse Ox 10/31/20 08:59 97.6 F 74 17 133/81 98 - Assessment/Plan Plan: Patient is a 30-year-old male presents today for wheezing. Patient is at his inhaler. Will provide patient and inhaler in the ED. Patient was given 2 puffs by myself from the albuterol inhaler. Patient will be sent home with the inhaler by me.
== END 2020-10-31 10:05 | disposition home or self-care (01) ==
LOC: MW.ED 08:53
DX: J45.909 Unspecified asthma, uncomplicated (principal); E66.9 Obesity, unspecified; Z68.36 Body mass index [BMI] 36.0-36.9, adult
CPT/HCPCS: 99284; A9270; 99282

== ENCOUNTER 2020-11-06 06:04 | Emergency (ER) | payer SELFPAY ==
[2020-11-06] MEDS ORDERED: Albuterol 6.7 GM Inhaler INH ONE (06:19)
--- NOTE | 2020-11-06 06:20 | EDM.PDOC ---
ED HPI GENERAL MEDICAL PROBLEM - General Chief Complaint: Respiratory Problem Stated Complaint: ASTHMA ATTACK Time Seen by Provider: 11/06/20 06:15 - History of Present Illness INITIAL COMMENTS - FREE TEXT/NARRATIVE: 30-year-old male with a history of asthma previously well controlled with Symbicort but who is been out of his Symbicort for quite some time presenting with asthma exacerbation. Patient ran out of his albuterol inhaler this evening. And woke up in the middle of the night with difficulty breathing that is typical for him. He states the pain days today and he was hoping to make it to the day. However, he had too much trouble breathing and so presents here. No fever no chest pain no abdominal pain no nausea or vomiting similar to prior asthma attacks. - Related Data Allergies Allergy/AdvReac Type Severity Reaction Status Date / Time No Known Allergies Allergy Verified 10/31/20 08:59 Home Meds: Home Meds Albuterol Sulfate [Albuterol Sulfate HFA] 8.5 gm INH Q6H PRN #1 inhaler 08/27/20 [Rx] Budesonide/Formoterol Fumarate [Symbicort 80-4.5 MCG] 2 puff IH BID 30 Days #1 inhaler 11/06/20 [Rx] Past Medical History - Past Health History Medical/Surgical History: Denies Medical/Surgical History HEENT History: Reports: None Cardiovascular History: Reports: None Respiratory History: Reports: Asthma Gastrointestinal History: Reports: None Genitourinary History: Reports: None Musculoskeletal History: Reports: None Neurological History: Reports: None Psychiatric History: Reports: None Endocrine/Metabolic History: Reports: Obesity/BMI 30+ 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 Hematologic History: Reports: None Immunologic History: Reports: None Oncologic (Cancer) History: Reports: None Dermatologic History: Reports: None - Infectious Disease History Infectious Disease History: Reports: Chicken Pox - Past Surgical History Head Surgeries/Procedures: Reports: None HEENT Surgical History: Reports: None Cardiovascular Surgical History: Reports: None Respiratory Surgical History: Reports: None GI Surgical History: Reports: None Male Surgical History: Reports: None Endocrine Surgical History: Reports: None Neurological Surgical History: Reports: None Musculoskeletal Surgical History: Reports: None Oncologic Surgical History: Reports: None Dermatological Surgical History: Reports: None Social & Family History - Family History Family Medical History: No Pertinent Family History - Caffeine Use Caffeine Use: Reports: None ED ROS GENERAL - Review of Systems Review Of Systems: See Below Free Text/Narrative/Comment: General: No fever. Respiratory: Per HPI Cardiac: No chest pain. Gastrointestinal: No nausea, vomiting or abdominal pain. Musculoskeletal: No myalgias/arthralgias. ED EXAM, GENERAL - Physical Exam Exam: See Below Free Text/Narrative:: General Appearance: No acute distress, appears comfortable HEENT: Normocephalic/atraumatic, sclera anicteric, mucous membranes moist Neck: Normal range of motion Chest and Lungs: Diffuse monophonic expiratory wheezing with slightly prolonged expiratory phase Cardiovascular: Regular rate and rhythm, no murmur Musculoskeletal: No edema or tenderness Neurologic: Awake, alert, no obvious deficits, moving all extremities Psychiatric: Appropriate, cooperative Course - Vital Signs Last Recorded V/S: Last Vital Signs Temp 97.0 F 11/06/20 06:16 Pulse 72 11/06/20 06:16 Resp 18 11/06/20 06:16 BP 139/82 11/06/20 06:16 Pulse Ox 96 11/06/20 06:16 - Orders/Labs/Meds Orders: Active Orders 24 hr Category Date Time Status RT Post Treatment Assessment [RC] Click to Edit Care 11/06/20 06:19 Active RT Pre-Treatment Assessment [RC] Click to Edit Care 11/06/20 06:19 Active Meds: Medications Discontinued Medications Generic Name Dose Route Start Last Admin Trade Name Freq PRN Reason Stop Dose Admin Albuterol 0 gm 11/06/20 06:19 11/06/20 06:32 Albuterol 6.7 Gm Inhaler INH 11/06/20 06:20 6.7 gm ONETIME ONE Administration Albuterol Confirm 11/06/20 06:28 11/06/20 06:32 Albuterol 8 Gm Inhaler Administered 11/06/20 06:29 Not Given Dose 8 gm INH .STK-MED ONE Departure - Departure Time of Disposition: 06:38 Disposition: Home, Self-Care 01 Condition: Good Clinical Impression: Bronchospasm - Discharge Information *PRESCRIPTION DRUG MONITORING PROGRAM REVIEWED*: Not Applicable *COPY OF PRESCRIPTION DRUG MONITORING REPORT IN PATIENT ZECHARIAH: Not Applicable Prescriptions: Budesonide/Formoterol Fumarate [Symbicort 80-4.5 MCG] 2 puff IH BID 30 Days #1 inhaler Instructions: Bronchospasm, Adult, [id number] Forms: ED Department Discharge Additional Instructions: I encourage you to follow-up at one of the primary care clinics listed below. [facility] [address] [place] [id number] [facility] [address] [place] [address] The following information is given to patients seen in the emergency department who are being discharged to home. This information is to outline your options for follow-up care. We provide all patients seen in our emergency department with a follow-up referral. The need for follow-up, as well as the timing and circumstances, are variable depending upon the specifics of your emergency department visit. If you don't have a primary care physician on staff, we will provide you with a referral. We always advise you to contact your personal physician following an emergency department visit to inform them of the circumstance of the visit and for follow-up with them and/or the need for any referrals to a consulting specialist. The emergency department will also refer you to a specialist when appropriate. This referral assures that you have the opportunity for follow-up care with a sp ecialist. All of these measure are taken in an effort to provide you with optimal care, which includes your follow-up. Under all circumstances we always encourage you to contact your private physicia n who remains a resource for coordinating your care. When calling for follow-up care, please make the office aware that this follow-up is from your recent emergency room visit. If for any reason you are refused follow-up, please contact the [facility] Emergency Department at and asked to speak to the emergency department charge nurse. Sepsis Event Note (ED) - Focused Exam Vital Signs: Vital Signs Temp Pulse Resp BP Pulse Ox 11/06/20 06:16 97.0 F 72 18 139/82 96 - My Orders Last 24 Hours: My Active Orders 11/06/20 06:19 RT Post Treatment Assessment [RC] Click to Edit RT Pre-Treatment Assessment [RC] Click to Edit - Assessment/Plan Last 24 Hours: My Active Orders 11/06/20 06:19 RT Post Treatment Assessment [RC] Click to Edit RT Pre-Treatment Assessment [RC] Click to Edit Assessment:: 30-year-old male presenting with signs and symptoms most consistent with bronchospasm related to uncontrolled asthma. Patient will be given 4 puffs of an albuterol inhaler. We are trying to see if we can get him a Symbicort inhaler as well as this has provided him with good control in the past. No concern for pneumonia no concern for PE no concern for ACS. Pt provided with Rx for Symbicort inhaler which he states he will be able to fill. Pt provided with [employer] card as well.
[2020-11-06] MEDS ORDERED: Albuterol 8 GM Inhaler INH ONE (06:28)
== END 2020-11-06 06:59 | disposition home or self-care (01) ==
LOC: MW.ED 06:04
DX: J98.01 Acute bronchospasm (principal); E66.9 Obesity, unspecified; Z68.38 Body mass index [BMI] 38.0-38.9, adult
CPT/HCPCS: 99285; A9270; 99283